=== PATIENT | female | born 1995 | race Caucasian/White ===

== ENCOUNTER 2021-11-03 09:13 | Outpatient (CLI) | payer BC, SELFPAY ==
[2021-11-03] VITALS (7 sets, daily range): BP systolic 130–141; BP diastolic 71–88; PULSE 69–81; TEMP 36.1; BMI 33.0
--- NOTE | ~2021-11-03 | US_ITS ---
EXAMINATION: US OB BPP wo non-stress DATE: 11/03/2021 11:29 CDT INDICATION: decelerations. Hypertension. TECHNIQUE: Real-time transabdominal obstetric ultrasound. FINDINGS: No prior studies for comparison. There is a single living fetus in vertex presentation. The placenta is anterior without placenta pre via. cardiac activity and movement is noted with a heart rate of 120 beats per minute. Biophysical profile: breathin of 2 movement: 2 of 2 tone: 2 of 2 Amniotic flud pocket: 2 of 2 Total score: 8 of 8 IMPRESSION: 1. Single living intrauterine in vertex presentation. 2: Total biophysical profile score of 8/8. Reviewed, dictated and finalized at location B.
[2021-11-03 09:56] LABS: Basophils Percent Auto 0.4 % (0.2-1.2); Eosinophils Percent Auto 0.3 % (0-4.4); Hematocrit 33.7 % (37.0-47.0); Hemoglobin 11.8 g/dL (12.0-15.0); Immature Granulocyte Absolute 0.05 K/mm3 (0.00-0.031); Immature Granulocyte Percent A 0.5 % (0-0.5); Lymphocytes Absolute Auto 1.65 K/mm3 (0.9-3.2); Mean Corpuscular Hemoglobin 29.8 pg (26-34); Mean Corpuscular Volume 85.1 fl (80-100); Monocytes Absolute Auto 0.8 K/mm3 (0.1-0.6); Monocytes Percent Auto 7.2 % (2.6-8.5); Neutrophils Absolute Auto 8.5 K/mm3 (1.3-6.7); Neutrophils Percent Auto 76.6 % (45.5-73.1); Platelet Count Result 224 k/mm3 (150-375); Red Blood Count 3.96 M/mm3 (4.2-5.4); Red Cell Distribution Width 11.7 % (11.5-14.5)
[2021-11-03 10:07] LABS: Alanine Aminotransferase 18 U/L (6-35); Albumin Level 3.6 g/dL (3.5-5.1); Alkaline Phosphatase 131 U/L (38-126); Anion Gap 6 mmol/L (8-16); Aspartate Amino Transferase 23 U/L (14-36); Bilirubin,Total 0.3 mg/dL (0.2-1.3); Blood Urea Nitrogen 10 mg/dL (7-17); Calcium 9.3 mg/dL (8.4-10.2); Carbon Dioxide 22 mmol/L (22-30); Chloride 106 mmol/L (98-107); Estimated CRCL calculation 113 ml/min; Estimated Glomerular Filt Rate > 60; Glucose 75 mg/dL (65-110); Potassium 3.9 mmol/L (3.4-5.0); Sodium 134 mmol/L (137-145); Uric Acid 5.4 mg/dL (2.5-7.5)
[2021-11-03 10:31] LABS: Appearance Urine Slightly Cloudy (Clear); Bilirubin Urine Negative (Negative); Color Urine Yellow (Yellow); Glucose Urine UA Negative (Negative); Ketones Urine Negative (Negative); Leukocyte Esterase Ur Trace LEU/UL (Negative); Nitrate Urine Negative (Negative); Protein Urine Negative (Negative); Urobilinogen Urine 0.2 mg/dL (<2.0); pH Urine 7.5 (5.0-9.0)
[2021-11-03 10:32] LABS: Add Urine Microscopic? YES; Blood Urine Trace-Intact (Negative)
[2021-11-03 10:41] LABS: Creatinine Urine 84.1 mg/dL; Total Protein Urine Random 16 mg/dL; Ur Ttl Prot Creatinine Ratio 0.19 mg/mg (0-0.20)
--- NOTE | 2021-11-03 10:44 | PC.NURSE ---
Dr. Garcia returned page and informed of BP's, lab results, and discussed otherwise reactive NST with 15-20 sec variables down to 120 and baby had a 2 min prolonged decel after coming back from the bathroom. FHT's went down to the 100's and took 2 mins for FHT's to return to 135 baseline. Have had reactive accels since the prolonged decel. Pt is 38 wks. MD states normal fluid on U/S done at MD office today. Order received for BPP. If 01/03, may discharge to home.
[2021-11-03 10:45] LABS: Bacteria Urine Trace /hpf; RBC Urine 0-2 /hpf (0-2); Squamous Epithelial Cell Urine Many /hpf (Few); WBC Urine 0-3 /hpf
--- NOTE | 2021-11-03 11:18 | PC.NURSE ---
BPP 01/03.
--- NOTE | 2021-11-03 13:05 | PM.OBTRLD ---
OB - Triage/Final Diagnosis Visit Information Date of evaluation: 11/03/21 Reason for evaluation: other ( induced hypertension) Comments/Additional reasons for admission: I have assessed the risk for this patient, Elizabeth Rubin, and determined that she would benefit from observation care. Evaluation Laboratory results: Laboratory Tests 11/03/21 11/03/21 11/03/21 09:48 09:48 09:48 WBC 11.0 H RBC 3.96 L Hgb 11.8 L Hct 33.7 L MCV 85.1 MCH 29.8 MCHC 35.0 RDW 11.7 Plt Count 224 MPV 11.0 H Immature Gran % (Auto) 0.5 Neut % (Auto) 76.6 H Lymph % (Auto) 15.0 L Hawkins % (Auto) 7.2 Eos % (Auto) 0.3 Baso % (Auto) 0.4 Lymph # (Auto) 1.65 Hawkins # (Auto) 0.8 H Eos # (Auto) 0.0 Baso # (Auto) 0.0 Abs Immat Gran (auto) 0.05 H Absolute Neuts (auto) 8.5 H Absolute Nucleated RBC 0.0 Nucleated RBC % 0.0 Sodium 134 L Potassium 3.9 Chloride 106 Carbon Dioxide 22 Anion Gap 6 L BUN 10 Creatinine 0.80 Estim Creat Clear Calc 113 Estimated GFR > 60 Glucose 75 Uric Acid 5.4 Calcium 9.3 Total Bilirubin 0.3 AST 23 ALT 18 Alkaline Phosphatase 131 H Total Protein 7.0 Albumin 3.6 Urine Color Urine Appearance Urine pH Ur Specific Wittman Urine Protein Urine Glucose (UA) Urine Ketones Ur Blood (Man) Urine Nitrate Urine Bilirubin Urine Urobilinogen Leukocyte Esterase Rfl Urine RBC Urine WBC Ur Squamous Epith Cells Urine Bacteria U Random Total Protein 16 Urine Creatinine 84.1 Protein/Creat Ratio 2 0.19 11/03/21 09:48 WBC RBC Hgb Hct MCV MCH MCHC RDW Plt Count MPV Immature Gran % (Auto) Neut % (Auto) Lymph % (Auto) Hawkins % (Auto) Eos % (Auto) Baso % (Auto) Lymph # (Auto) Hawkins # (Auto) Eos # (Auto) Baso # (Auto) Abs Immat Gran (auto) Absolute Neuts (auto) Absolute Nucleated RBC Nucleated RBC % Sodium Potassium Chloride Carbon Dioxide Anion Gap BUN Creatinine Estim Creat Clear Calc Estimated GFR Glucose Uric Acid Calcium Total Bilirubin AST ALT Alkaline Phosphatase Total Protein Albumin Urine Color Yellow Urine Appearance Slightly cloudy Urine pH 7.5 Ur Specific Wittman 1.020 Urine Protein Negative Urine Glucose (UA) Negative Urine Ketones Negative Ur Blood (Man) Trace-intact Urine Nitrate Negative Urine Bilirubin Negative Urine Urobilinogen 0.2 Leukocyte Esterase Rfl Trace H Urine RBC 0-2 Urine WBC 0-3 Ur Squamous Epith Cells Many H Urine Bacteria Trace U Random Total Protein Urine Creatinine Protein/Creat Ratio 2 Vital signs: Vital Signs - 24 hr 11/03/21 09:31 11/03/21 09:55 11/03/21 10:15 Temperature Pulse Rate 81 79 71 Blood Pressure 141/88 H 134/75 132/79 Blood Pressure [Right Arm] 11/03/21 10:30 11/03/21 10:45 11/03/21 09:33 Temperature Pulse Rate 76 69 79 Blood Pressure 138/77 130/71 Blood Pressure [Right Arm] 141/88 H 11/03/21 09:33 Temperature 36.1 C L Pulse Rate Blood Pressure Blood Pressure [Right Arm]
== END 2021-11-03 11:19 | disposition home or self-care (01) ==
LOC: ANHOBOP 09:18 → ANHOBPP 11-08 08:17
PROVIDERS: Visit Provider Student in an Organized Health Care Education/Training Program
DX: O13.3 Gestational [pregnancy-induced] hypertension without significant proteinuria, third trimester (principal); Z3A.38 38 weeks gestation of pregnancy
CPT/HCPCS: 36415; 59025; 76819; 80053; 81001; 82570; 84156; 84550; 85025; 99199

== ENCOUNTER 2021-11-08 20:00 | Observation (INO) | payer BC, SELFPAY ==
--- NOTE | 2021-11-10 07:36 | PM.OBTRLD ---
OB - Triage/Final Diagnosis Visit Information Reason for evaluation: threatened labor Comments/Additional reasons for admission: I have assessed the risk for this patient, Elizabeth Rubin, and determined that she would benefit from observation care.
== END 2021-11-08 21:00 | disposition home or self-care (01) ==
PROVIDERS: Admitting Provider Obstetrics & Gynecology; Visit Provider Obstetrics & Gynecology
DX: O47.1 False labor at or after 37 completed weeks of gestation (principal); Z3A.38 38 weeks gestation of pregnancy
CPT/HCPCS: 84112; G0378; G0379

== ENCOUNTER 2021-11-10 16:36 | Inpatient (IN) | payer BC, SELFPAY ==
[2021-11-10] VITALS (24 sets, daily range): BP systolic 111–137; BP diastolic 49–84; PULSE 57–87; O2SAT 97–100; BMI 33.5
--- NOTE | 2021-11-10 10:25 | PM.IMHP ---
H&P: HPI History of Present Illness Date/Time: 11/10/21 10:25 Chief Complaint: intrauterine at term gestational hypertension Narrative: 26 yo G1 at 39w0d who presents for IOL for gestational hypretension. Pt was noted to have mild range BP in outpatient visits. [facility] lab work has been wnl. Pt denies any PreE symptoms. Given persistent mild range BP, recommended IOL. Review of Systems Cardiovascular: Cardiovascular: Denies chest pain, Denies leg edema, Denies palpitations, Denies dyspnea and Denies dyspnea on exertion Respiratory: Respiratory: Denies cough, Denies dyspnea and Denies dyspnea on exertion Gastrointestinal: Gastrointestinal: Denies abdominal pain, Denies constipation, Denies diarrhea, Denies nausea and Denies vomiting Genitourinary: Genitourinary: Denies hematuria, Denies urinary frequency, Denies dysuria, Denies pelvic pain, Denies urinary incontinence and Denies vaginal discharge Neurologic: Reports system reviewed and no additional complaints, except as documented Psychiatric: Psychiatric: Reports no additional psychiatric complaints Endocrine: Endocrine: Denies palpitations [facility] Family History Family History (Updated 10/19/21 @ 15:26 by Nora Bello RN) Grandparent Cerebrovascular accident Grandparent Alzheimer disease Social History Social History Substance use: never Spiritual care concerns: No Meds Home Medications and Allergies Home Medications Medication Instructions Recorded Confirmed Type prenat.vits,hammad,[id number] 1 tablet PO DAILY 10/19/21 11/03/21 History Allergies Allergy/AdvReac Type Severity Reaction Status Date / Time cinnamon Allergy Swelling Verified 11/03/21 10:00 of Lip/Tongue/Throat No Known Drug Allergies Allergy Unknown Verified 11/03/21 10:00 Exam Const: General: no acute distress Eyes: EOM: EOMs intact bilaterally Neck: Neck: supple Thyroid: thyroid normal Chest: Breast/axilla inspection: normal inspection of the breasts Breast/axilla palpation: normal palpation of the breasts, normal palpation of the axillae and no axillary lymphadenopathy Resp: Effort & Inspection: normal respiratory effort Auscultation: clear to auscultation bilaterally Cardio: Rate: regular rate Rhythm: regular rhythm GI: Inspection: non-distended and other (Gravid) GI Palp: Yes Soft to palpation, No Tenderness to palpation present (GI) and No Guarding due to palpation present (GI) Auscultation: normal bowel sounds : Speculum Exam - Vagina: No vaginal bleeding OB/external & speculum: external exam normal; No vaginal bleeding Skin: General skin exam: normal color and no rashes or lesions noted Neuro: Cognition (Neuro): normal cognition Speech: normal speech Extrem: General: normal to inspection Psych: Mental Status: mental status grossly normal Affect: normal affect Assessment and Plan Assessment and plan (1) Supervision of high risk , unspecified, third trimester: Code(s): O09.93 - Supervision of high risk , unspecified, third trimester Status: Acute Assessment and Plan: 26 yo at 39w0d admit to L&D for IOL labs wnl Rh+ GBS neg plan for cervidil IOL continuous EFM (2) Gestational hypertension: Code(s): O13.9 - Gestational [-induced] hypertension without significant proteinuria, unspecified trimester Status: Acute Assessment and Plan: mild range BP in office PIH labs wnl denies any PreE symptoms recommended IOL given persistent mild range BP plan for cervidil IOL
--- NOTE | 2021-11-10 16:58 | P.PNAN_ITS ---
Anes - Eval Pre Procedure Procedure: Labor epidural Date/Time: 11/10/21 16:58 Surgeon: Radha Preop Diagnosis: Abd pain with contractions Pre Op Diagnosis: Induction of Labor Patient Data Age: 26 Gender: F Height: Weight: Allergies Allergy/AdvReac Type Severity Reaction Status Date / Time cinnamon Allergy Swelling Verified 11/03/21 10:00 of Lip/Tongue/Throat No Known Drug Allergies Allergy Unknown Verified 11/03/21 10:00 Home Medications Medication Instructions Recorded Confirmed Type prenat.vits,hammad,fsf-gdaw-lpiod 1 tablet PO DAILY 10/19/21 11/03/21 History Patient hx anesthesia problems: none Family hx anesthesia problems: none Results Review: All pre-operative results and documents have been reviewed as part of the pre- operative evaluation. [facility] Past Medical History Medical History Anxiety Gestational hypertension Obesity Tachycardia Family History Family History Grandparent Cerebrovascular accident Grandparent Alzheimer disease Social History Social History Substance use: never Spiritual care concerns: No Exam Day of Procedure 11/10/21 16:58 Patient weight: obese Airway: Mallampati scale class II
--- NOTE | 2021-11-10 17:06 | LDADM ---
This patient, Elizabeth Rubin, was admitted to Labor/Delivery/Recovery 109 on 11/10/21 at 16:36. Plans for labor, pain management and were discussed with patient. Patient/family oriented to hospital policies and general routines including ID bracelet, bed and alarms, visiting hours, pain management, procedures, bathroom and other care routines, personal items, smoking policy, room service/diet and guest tray routines, security routines, and visiting hours. Patient/Family are encouraged to report perceived risks to care and to ask questions if they do not understand what they are told or what they should do. See OBIX for further documentation.
[2021-11-10 17:17] LABS: Basophils Percent Auto 0.3 % (0.2-1.2); Eosinophils Absolute Auto 0.1 K/mm3 (0-0.3); Eosinophils Percent Auto 0.5 % (0-4.4); Hematocrit 32.4 % (37.0-47.0); Hemoglobin 10.9 g/dL (12.0-15.0); Immature Granulocyte Absolute 0.06 K/mm3 (0.00-0.031); Immature Granulocyte Percent A 0.6 % (0-0.5); Lymphocytes Absolute Auto 1.56 K/mm3 (0.9-3.2); Mean Corpuscular HGB Conc 33.6 g/dl (32-36); Mean Corpuscular Volume 86.2 fl (80-100); Mean Platelet Volume 11.2 fl (7.4-10.4); Monocytes Absolute Auto 0.7 K/mm3 (0.1-0.6); Monocytes Percent Auto 6.6 % (2.6-8.5); Platelet Count Result 212 k/mm3 (150-375); Red Blood Count 3.76 M/mm3 (4.2-5.4); Red Cell Distribution Width 11.8 % (11.5-14.5); White Blood Count 10.4 K/mm3 (4.5-10.0)
[2021-11-10 17:26] LABS: Alanine Aminotransferase 18 U/L (6-35); Albumin Level 3.6 g/dL (3.5-5.1); Alkaline Phosphatase 123 U/L (38-126); Anion Gap 4 mmol/L (8-16); Aspartate Amino Transferase 25 U/L (14-36); Bilirubin,Total < 0.1 mg/dL (0.2-1.3); Blood Urea Nitrogen 11 mg/dL (7-17); Carbon Dioxide 24 mmol/L (22-30); Chloride 104 mmol/L (98-107); Estimated CRCL calculation 114 ml/min; Estimated Glomerular Filt Rate > 60; Glucose 84 mg/dL (65-110); Potassium 3.8 mmol/L (3.4-5.0); Sodium 132 mmol/L (137-145); Uric Acid 5.5 mg/dL (2.5-7.5)
[2021-11-10] MEDS: DINOPROSTONE 10 MG VAG INSERT VAGINAL (18:34)
[2021-11-11] VITALS (215 sets, daily range): BP systolic 102–150; BP diastolic 47–99; PULSE 25–142; RESP 18; TEMP 36.3–38.1; O2SAT 79–100
[2021-11-11] MEDS: DINOPROSTONE 10 MG VAG INSERT VAGINAL (01:12)
[2021-11-11] MEDS: ACETAMINOPHEN 500 MG TABLET 1000 MG PO ×2 (01:40→08:22)
--- NOTE | 2021-11-11 07:40 | PM.OBTRLD ---
OB - Triage/Final Diagnosis Visit Information Comments/Additional reasons for admission: I have assessed the risk for this patient, Elizabeth Rubin, and determined that she would benefit from observation care. Evaluation Laboratory results: Laboratory Tests 11/10/21 11/10/21 11/10/21 16:56 16:56 16:57 WBC 10.4 H RBC 3.76 L Hgb 10.9 L Hct 32.4 L MCV 86.2 MCH 29.0 MCHC 33.6 RDW 11.8 Plt Count 212 MPV 11.2 H Immature Gran % (Auto) 0.6 H Neut % (Auto) 77.0 H Lymph % (Auto) 15.0 L Tripp % (Auto) 6.6 Eos % (Auto) 0.5 Baso % (Auto) 0.3 Lymph # (Auto) 1.56 Tripp # (Auto) 0.7 H Eos # (Auto) 0.1 Baso # (Auto) 0.0 Abs Immat Gran (auto) 0.06 H Absolute Neuts (auto) 8.0 H Absolute Nucleated RBC 0.0 Nucleated RBC % 0.0 Sodium 132 L Potassium 3.8 Chloride 104 Carbon Dioxide 24 Anion Gap 4 L BUN 11 Creatinine 0.80 Estim Creat Clear Calc 114 Estimated GFR > 60 Glucose 84 Uric Acid 5.5 Calcium 9.0 Total Bilirubin < 0.1 L AST 25 ALT 18 Alkaline Phosphatase 123 Total Protein 7.0 Albumin 3.6 Blood Type A Positive Antibody Screen Negative Vital signs: Vital Signs - 24 hr 11/10/21 17:00 11/10/21 17:15 11/10/21 17:30 Temperature Pulse Rate 87 68 64 Blood Pressure 137/84 136/78 133/78 Pulse Oximetry Oxygen Delivery 11/10/21 17:32 11/10/21 17:37 11/10/21 17:42 Temperature Pulse Rate Blood Pressure Pulse Oximetry 97 100 100 Oxygen Delivery 11/10/21 17:45 11/10/21 17:47 11/10/21 17:52 Temperature Pulse Rate 65 Blood Pressure 126/60 Pulse Oximetry 99 99 Oxygen Delivery 11/10/21 17:57 11/10/21 18:00 11/10/21 18:02 Temperature Pulse Rate 63 Blood Pressure 129/57 L Pulse Oximetry 99 99 Oxygen Delivery 11/10/21 18:07 11/10/21 18:12 11/10/21 18:15 Temperature Pulse Rate 59 L Blood Pressure 121/67 Pulse Oximetry 99 98 Oxygen Delivery 11/10/21 18:17 11/10/21 18:22 11/10/21 18:27 Temperature Pulse Rate Blood Pressure Pulse Oximetry 99 99 99 Oxygen Delivery 11/10/21 18:30 11/10/21 18:32 11/10/21 18:43 Temperature Pulse Rate 75 63 Blood Pressure 127/64 130/63 Pulse Oximetry 98 Oxygen Delivery 11/10/21 19:34 11/10/21 20:40 11/10/21 22:34 Temperature Pulse Rate 63 65 79 Blood Pressure 123/61 122/61 111/49 L Pulse Oximetry Oxygen Delivery 11/11/21 00:00 11/11/21 00:03 11/11/21 05:46 Temperature 98.1 F Pulse Rate 59 L 62 Blood Pressure 112/47 L 110/67 Pulse Oximetry Oxygen Delivery 11/11/21 05:58 11/11/21 06:52 11/10/21 17:05 Temperature 97.9 F Pulse Rate 59 L Blood Pressure 132/81 Pulse Oximetry Oxygen Delivery Room Air
--- NOTE | 2021-11-11 08:17 | PM.OBPNLAB ---
Pain Control Date/time seen: 11/11/21 08:17 Pain control: tolerating well Pelvic Exam Dilation (cm): 2 Effacement (%): 70 station: -1 Amniotic membrane status: Intact Contractions Monitor mode: External Status status: Category l Assessment and Plan Assessment: induction ongoing Plan: other (cervical pablo catheter was placed)
[2021-11-11] MEDS: LACTATED RINGERS 1,000 ML 125 ML IV CONT ×2 (08:51→15:57)
--- NOTE | 2021-11-11 10:16 | PM.OBPNLAB ---
Pain Control Date/time seen: 11/11/21 10:16 Pain control: epidural Pelvic Exam Dilation (cm): 5 Effacement (%): 80 station: -1 Amniotic membrane status: Ruptured (clear fluid) Contractions Monitor mode: Internal Contraction frequency: 3 Status status: Category l Assessment and Plan Assessment: induction ongoing Plan: continuous present management Comments: AROM for clear fluid. IUPC placed. Will augment with pitocin if contractions inadequate
[2021-11-11] MEDS: OXYTOCIN 30 UNITS/NS 500 ML 30 UNITS/500 ML BAG IV CONT (11:22)
[2021-11-11 13:53] LABS: Rapid Plasma Reagin Non-Reactive (NonReactive)
[2021-11-11] MEDS: ONDANSETRON INJ 4 MG/2 ML VIAL IV PUSH (16:21)
[2021-11-11] MEDS: AMPICILLIN 2 GM/NS 100 ML 2 GM/100 ML BAG IVPB (18:41)
[2021-11-11] MEDS: GENTAMICIN 80MG/SOD CHL 50 ML 80 MG/50 ML BAG 100 MG IVPB (19:12)
[2021-11-11] MEDS: FAMOTIDINE 20 MG/2 ML VIAL (20:28)
--- NOTE | 2021-11-11 20:58 | PM.OBPRVD ---
OB - Delivery Note Procedure Procedure: Patient pushed for a spontaneous vaginal delivery. The fetus was delivered atraumatically and placed on the maternal abdomen. The cord was clamped and cut after 1 minute of life. The cord was double clamped and cut and a segment of cord was collected for cord gases. Cord blood was collected for blood type and Coomb's testing. The placenta delivered spontaneously and was noted to be intact. The perineum was inspected and there was a 2nd degree perineal laceration. The laceration was repaired with 3-0 vicryl in the usual fashion. The uterus was firm and good hemostasis was noted. The patient and fetus were stable in the delivery room. Events: Gestational Hypertension Induction method: Per Cervidil Protocol Delivery augmentation: Rupture of Membranes and Pitocin Delivery monitor: External FHT Route of delivery: Episiotomy description: None Laceration Description: Perineal - 2nd Degree Delivery repair: vicryl Specimen: No Quantitative Blood Loss (ml): 400 Disposition: Floor () Complications: No immediate complications Baby Date of : 11/11/21 Weeks of gestation at delivery: 39 gender: Female Weight (pounds): 9 Weight (ounces): 14 presentation: vertex position: Right Occiput Anterior Placenta delivery description: Spontaneous Cord Vessel Description: 3 Vessels score one minute: 9 score five minutes: 9
[2021-11-11] MEDS: OXYTOCIN 30 UNITS/NS 500 ML 30 UNITS/500 ML BAG 125 UNITS IV CONT (21:22)
[2021-11-11] MEDS: IBUPROFEN 600 MG TABLET PO (22:22)
--- NOTE | 2021-11-11 23:25 | ADMGEN ---
This patient, Elizabeth Rubin, was admitted to OB 2nd Floor Room 288-00. Patient/family oriented to hospital policies and general routines including ID bracelet, bed and alarms, visiting hours, pain management, procedures, bathroom and other care routines, personal items, smoking policy, room service/diet, and visiting hours. Information on how to activate the Rapid Response Team has been discussed. Patient/Family are encouraged to report perceived risks to care and to ask questions if they do not understand what they are told or what they should do.
[2021-11-12] VITALS (7 sets, daily range): BP systolic 119–143; BP diastolic 66–92; PULSE 66–77; RESP 16–18; TEMP 36.5–36.7; O2SAT 98–100
[2021-11-12] MEDS: IBUPROFEN 600 MG TABLET PO ×2 (05:44→17:10)
[2021-11-12 06:12] LABS: Hematocrit 31.7 % (37.0-47.0); Hemoglobin 10.7 g/dL (12.0-15.0)
--- NOTE | 2021-11-12 07:59 | WPDANLDPN2 ---
Anes-Prog Note L&D Date/Time: 11/12/21 07:59 Comfortable throughout: labor and delivery Neuraxial method: epidural Epidural/Spinal procedure site: clean & non-tender Neuro status: Neuro function grossly intact. Cardiovascular status: normal Respiratory status: normal Airway patency: baseline Mental status: baseline Post-Op hydration status: normal Vital Signs: Last Vital Signs Temp 36.5 C 11/12/21 04:00 Pulse 72 11/12/21 04:00 Resp 18 11/12/21 04:00 BP 132/92 H 11/12/21 04:00 Pulse Ox 99 11/11/21 20:36 O2 Del Method Room Air 11/12/21 04:00 Pain score (VAS): 3 I/O: Intake & Output 11/11/21 11/11/21 11/12/21 15:59 23:59 07:59 Intake Total 3274 075 2288 Output Total 40 1300 Balance 1000 160 200 Post-procedural complaints: none Patient feedback: Patient satisfied with anesthetic care.
--- NOTE | 2021-11-12 08:01 | PM.OBPNVD ---
OB - PN: Subj Subjective Date/time seen: 11/12/21 08:01 Patient comments: no complaints, pain well controlled and tolerating diet [place] feeding status: exclusively breast feeding Narrative: patient doing well this AM. No complaints. Pt has some increased perineal pain. She reports minimal bleeding. She is ambulating and voiding without difficulty. She is tolerating PO. She denies N/V, fever, chills. OB - PN: Obj Data Labs CBC & Chem 7: 11/12/21 05:39 11/10/21 16:57 Labs: Laboratory Results - last 24 hr 11/10/21 11/12/21 16:56 05:39 Hgb 10.7 L Hct 31.7 L RPR Non-reactive OB - PN A/P Plan day: 1 Plan: routine care Comments: patient doing well H/H stable continue routine care Time Spent With Patient Time: Total time spent is greater than 50% in coordination of care (as documented) at patient's floor/unit and/or counseling patient: Time with patient: less than 15 minutes Review of Systems Review of Systems: All systems reviewed & are unremarkable except as noted in HPI and below Exam Const: General: comfortable and no acute distress Resp: Effort & Inspection: normal respiratory effort Cardio: Rate: regular rate GI: GI Palp: Yes Soft to palpation and No Tenderness to palpation present (GI) Auscultation: normal bowel sounds Other: fundus firm and below umbilicus. Psych: Affect: normal affect
[2021-11-12] MEDS: ACETAMINOPHEN 325 MG TABLET 650 MG PO (09:11)
[2021-11-12] MEDS: DOCUSATE SODIUM 100 MG CAPSULE PO ×2 (09:12→17:11)
[2021-11-12] MEDS: MULTIVIT/MIN/PREN/FOL AC/IRON TABLET 1 TAB PO (09:12)
[2021-11-12] MEDS: HYDROcodone/acetaminophen (*CRX) 5-325 MG TABLET 1 TAB PO ×2 (10:04→17:11)
--- NOTE | 2021-11-12 13:43 | PC.NURSE ---
This morning introductions were made, then consulted with patient to assess needs related to . Mother led the conversation with her experience feeding her so far. Mother works well with her infant. Encouraged understanding of the benefits of skin to skin (unwrapping infant and placing vertically on her chest), responsive feeding and how to watch for early feeding signs, frequency of feeding on demand about every 8-12 times in 24 hours (every 2-3 hours), milk production, duration of feeding, signs of adequate intake/output and how to record on the feeding sheet. Reviewed positioning and ear, shoulder, hip alignment, supporting the breast, asymmetrical latch (off-center), and leading with the chin with a big open side gape. Primary RN had assisted infant to latch optimally to the left breast in cross cradle position. Education given to mother of how to visualize suck/swallow ratios and drinking at the breast. Infant was able to maintain latch without discomfort to mother. After an effective breastfeed of 20 min self-detached and there was no nipple misshaped to indicate an improper latch. Infants hands were relaxed. Nipple care reviewed with optimal latch and good positioning. Reviewed good handwashing when or touching the breast/nipples to prevent infection. Resources used to facilitate learning were used with the mom and baby guide. Mother voiced understanding of responsive feedings, stimulating with skin to skin, hand expressed colostrum, touch, talking to to encourage if it has been 2 -3 hours since the start of the last , to call if infant does not latch or there is discomfort with . Reported to the primary RN.
[2021-11-12] MEDS: WITCH HAZEL 40 PADS 1 PAD TOPICAL (17:12)
[2021-11-13 05:05] VITALS: BP 128/79; PULSE 86; RESP 16; TEMP 36.1
[2021-11-13] MEDS: HYDROcodone/acetaminophen (*CRX) 5-325 MG TABLET 1 TAB PO (05:13)
[2021-11-13] MEDS: IBUPROFEN 600 MG TABLET PO (05:13)
--- NOTE | 2021-11-13 06:33 | PM.OBPNVD ---
OB - PN: Subj Subjective Date/time seen: 11/13/21 06:33 Patient comments: no complaints and pain well controlled baby status: doing well OB - PN: Obj Data Labs CBC & Chem 7: 11/12/21 05:39 11/10/21 16:57 Labs: Laboratory Results - last 24 hr 11/12/21 05:39 Hgb 10.7 L Hct 31.7 L OB - PN A/P Assessment and Plan (1) Gestational hypertension: Code(s): O13.9 - Gestational [-induced] hypertension without significant proteinuria, unspecified trimester Status: Acute (2) Supervision of high risk , unspecified, third trimester: Code(s): O09.93 - Supervision of high risk , unspecified, third trimester Status: Acute Plan day: 1 Plan: routine care, discharge home and follow up 6 weeks Time Spent With Patient Time: Total time spent is greater than 50% in coordination of care (as documented) at patient's floor/unit and/or counseling patient: Time with patient: less than 15 minutes
--- NOTE | 2021-11-13 08:01 | PM.OBDSVD ---
DS: Admitting Diagnosis Discharge Date 11/13/21 Admitting Diagnosis intrauterine at term gestational hypertension OB - DS: Summary OB Procedures : None OB Procedures Intrapartum: Spontaneous Vag Delivery OB Procedures: : None Peripartum Data Infant Delivery Method: Natural Vaginal Laceration Description: Perineal - 2nd Degree Episiotomy description: None Status at Discharge Functional status at discharge: independent ambulation Overall status at discharge: patient is back to baseline Time Spent with Patient Time attestation: Total time spent providing and/or coordinating discharge services: Time spent: Less than 30 minutes Exam Const: General: comfortable and no acute distress Resp: Effort & Inspection: normal respiratory effort Auscultation: clear to auscultation bilaterally Cardio: Rate: regular rate GI: GI Palp: Yes Soft to palpation Auscultation: normal bowel sounds Other: Fundus firm below umbilicus Psych: Appearance: grossly normal Mental Status: mental status grossly normal Affect: normal affect DS: Data Data Completed and Pending Labs on day of discharge: Labs from last 24 hours 11/12/21 11/10/21 05:39 16:56 Hgb 10.7 L Hct 31.7 L RPR Non-reactive Discharge Plan Discharge Attending physician on discharge: David Medel Consulting providers: Nate Jarquin ; Fe Pitt Discharging Clinician: Renny Garcia Patient Disposition: Home, Self-Care Activity: pelvic rest Diet: regular Discharge Instructions: Education: Mom and Baby Guide Given to: Mother Follow-Up: Call your delivering provider's office for an appointment to be seen in: 4 Weeks Mom and baby should come to the [facility] for the follow-up appointment. Appointment Date/Time: November 13, 2021 at 10:00 am What to expect at your follow-up visit: Physical Assessment Call [phone] if you are unable to keep your appointment time. BREAST CARE: * Wear a snug supportive bra. * For engorgement discomfort: Breast Feeding: * Apply warm moist washcloths * Express milk as needed to relieve engorgement * Wear loose clothing * For sore nipples: * Identify correct latch-on * Apply warm moist washcloths before and after nursing * Air dry nipples after nursing * May apply Lansinoh cream to nipples PERINEAL CARE: * Until bleeding stops, use your eliel bottle after urinating * Change your pad frequently throughout the day * You may take sitz baths several times a day (fill your bathtub with warm water and soak for 20 minutes.) Do NOT bathe in the water * No tub baths until seen by your physician - You may shower ACTIVITY: * Rest as much as possible. * Do not exercise or lift anything heavier than your baby (such as laundry or other children.) * Avoid stairs or driving as much as possible. * Do not put anything into the vagina. No douching, tampons, or sexual activity until seen by physician. NOTIFY PHYSICIAN IF YOU HAVE ANY QUESTIONS OR IF ANY OF THE FOLLOWING SYMPTOMS OCCUR: * If your perineum becomes red, swollen, or more painful than what you have experienced in the hospital. * If your vaginal bleeding becomes foul smelling. * If your vaginal bleeding becomes more heavy than a period or if your bleeding changes from pink to bright red. However, you may pass an occasional walnut-sized clot once or twice for the first week . * If you experience a sharp, shooting pain in you calves. * If you discover a hard, reddened area on your breast or if you experience flu-like symptoms. DIET: * Eat regular, well-balanced meals. * Drink plenty of fluids daily. If , drink to thirst. Patient Instructions: Antibiotic Form, Vaginal Delivery (DC) Stand Alone Forms: General Discharge Information Follow-up/Referrals: Renny Garcia MD [Physician] - 4 Weeks Discharge Medication
[2021-11-13 09:20] VITALS: BP 142/76; PULSE 80; RESP 18; TEMP 36.1; O2SAT 99
[2021-11-13] MEDS: MULTIVIT/MIN/PREN/FOL AC/IRON TABLET 1 TAB PO (10:43)
[2021-11-13] MEDS: DOCUSATE SODIUM 100 MG CAPSULE PO (10:43)
[2021-11-13] MEDS: LANOLIN (LANSINOH) 7.5 GM CREAM 1 APPLIC TOPICAL (10:43)
[2021-11-15 10:14] VITALS: BP 143/85; PULSE 75; RESP 16; TEMP 37.1; O2SAT 100
== END 2021-11-13 14:54 | disposition home or self-care (01) | DRG 807 ==
LOC: ANHOB2 11-13 13:51 → ANHLDR 11-16 07:55 → ANHOB2 11-16 07:55
PROVIDERS: Admitting Provider Student in an Organized Health Care Education/Training Program; Visit Provider Obstetrics & Gynecology
DX: O13.4 Gestational [pregnancy-induced] hypertension without significant proteinuria, complicating childbirth (principal); Z37.0 Single live birth; Z3A.39 39 weeks gestation of pregnancy; O70.1 Second degree perineal laceration during delivery; O36.8330 Maternal care for abnormalities of the fetal heart rate or rhythm, third trimester, not applicable or unspecified
CPT/HCPCS: 36415; 80053; 84550; 85014; 85018; 85025; 86592; 86850; 86900; 86901; A9270; J0131; J0290; J1580; J2405; J2590; J2795; J7120

== ENCOUNTER 2024-05-31 12:47 | Outpatient (CLI) | payer BC, OTHER, SELFPAY ==
[2024-05-31] VITALS (7 sets, daily range): BP systolic 117–136; BP diastolic 64–79; PULSE 77–101; BMI 32.0
[2024-05-31 13:57] LABS: Basophils Absolute Auto 0.1 K/mm3 (0.0-0.1); Basophils Percent Auto 0.4 % (0.2-1.2); Eosinophils Absolute Auto 0.1 K/mm3 (0-0.3); Eosinophils Percent Auto 0.7 % (0-4.4); Hematocrit 35.9 % (37.0-47.0); Hemoglobin 12.7 g/dL (12.0-15.0); Immature Granulocyte Absolute 0.05 K/mm3 (0.00-0.031); Immature Granulocyte Percent A 0.4 % (0-0.5); Lymphocytes Absolute Auto 1.63 K/mm3 (0.9-3.2); Lymphocytes Percent Auto 11.9 % (18.3-44.2); Mean Corpuscular HGB Conc 35.4 g/dl (32-36); Mean Corpuscular Hemoglobin 31.1 pg (26-34); Mean Corpuscular Volume 87.8 fl (80-100); Mean Platelet Volume 10.4 fl (7.4-10.4); Monocytes Absolute Auto 0.7 K/mm3 (0.1-0.6); Monocytes Percent Auto 5.2 % (2.6-8.5); Neutrophils Absolute Auto 11.2 K/mm3 (1.3-6.7); Neutrophils Percent Auto 81.4 % (45.5-73.1); Platelet Count Result 242 k/mm3 (150-375); Red Blood Count 4.09 M/mm3 (4.2-5.4); Red Cell Distribution Width 12.4 % (11.5-14.5); White Blood Count 13.7 K/mm3 (4.5-10.0)
[2024-05-31 14:01] LABS: Add Urine Microscopic? NO; Appearance Urine Clear (Clear); Bilirubin Urine Negative (Negative); Blood Urine Negative (Negative); Color Urine Yellow (Yellow); Glucose Urine UA Negative (Negative); Ketones Urine Trace mg/dL (Negative); Leukocyte Esterase Ur Negative LEU/UL (Negative); Nitrate Urine Negative (Negative); Protein Urine Negative (Negative); Specific Grav Ur 1.007 (1.001-1.035); Urobilinogen Urine 0.2 mg/dL (<2.0)
[2024-05-31 14:08] LABS: Alanine Aminotransferase 14 U/L (6-35); Albumin Level 3.7 g/dL (3.5-5.1); Alkaline Phosphatase 70 U/L (38-126); Anion Gap 3 mmol/L (4-12); Aspartate Amino Transferase 18 U/L (14-36); Bilirubin,Total 0.4 mg/dL (0.2-1.3); Blood Urea Nitrogen 10 mg/dL (7-17); Carbon Dioxide 23 mmol/L (22-30); Chloride 109 mmol/L (98-107); Estimated Glomerular Filt Rate > 60; Glucose 76 mg/dL (65-110); Potassium 3.7 mmol/L (3.4-5.0); Sodium 135 mmol/L (137-145); Uric Acid 4.1 mg/dL (2.5-7.5)
[2024-05-31 14:32] LABS: Creatinine Urine 49.1 mg/dL; Total Protein Urine Random 11 mg/dL; Ur Ttl Prot Creatinine Ratio 0.22 mg/mg (0-0.20)
--- NOTE | 2024-05-31 14:44 | PC.NURSE ---
Dr. Garcia informed of BP's, lab results, NST with 10 beat accels at 25 wks. Pt c/o headache. Orders received for discharge.
== END 2024-05-31 14:56 | disposition home or self-care (01) ==
LOC: ANHOBOP 12:54 → ANHOBPP 12:57
PROVIDERS: PCP Physician Assistant; Visit Provider Student in an Organized Health Care Education/Training Program
DX: O13.9 Gestational [pregnancy-induced] hypertension without significant proteinuria, unspecified trimester (principal)
CPT/HCPCS: 36415; 59025; 80053; 81003; 82570; 84156; 84550; 85025; 99199

== ENCOUNTER 2024-07-29 15:35 | Outpatient (CLI) | payer BC, OTHER, SELFPAY ==
[2024-07-29 16:15] VITALS: BP 139/79; PULSE 96
[2024-07-29 16:18] LABS: Basophils Percent Auto 0.3 % (0.2-1.2); Eosinophils Absolute Auto 0.1 K/mm3 (0-0.3); Eosinophils Percent Auto 0.7 % (0-4.4); Hemoglobin 10.9 g/dL (12.0-15.0); Immature Granulocyte Absolute 0.07 K/mm3 (0.00-0.031); Immature Granulocyte Percent A 0.6 % (0-0.5); Lymphocytes Absolute Auto 1.65 K/mm3 (0.9-3.2); Lymphocytes Percent Auto 13.2 % (18.3-44.2); Mean Corpuscular HGB Conc 34.1 g/dl (32-36); Mean Corpuscular Hemoglobin 29.2 pg (26-34); Mean Corpuscular Volume 85.8 fl (80-100); Mean Platelet Volume 10.7 fl (7.4-10.4); Monocytes Absolute Auto 0.8 K/mm3 (0.1-0.6); Monocytes Percent Auto 6.2 % (2.6-8.5); Neutrophils Absolute Auto 9.9 K/mm3 (1.3-6.7); Platelet Count Result 230 k/mm3 (150-375); Red Blood Count 3.73 M/mm3 (4.2-5.4); Red Cell Distribution Width 11.8 % (11.5-14.5); White Blood Count 12.5 K/mm3 (4.5-10.0)
[2024-07-29 16:27] LABS: Add Urine Microscopic? YES; Appearance Urine Turbid (Clear); Bacteria Urine 2+ /hpf; Bilirubin Urine Negative (Negative); Blood Urine Negative (Negative); Color Urine Yellow (Yellow); Glucose Urine UA Negative (Negative); Ketones Urine Negative (Negative); Leukocyte Esterase Ur 1+ LEU/UL (Negative); Mucus Urine Present /lpf; Need Manual Microscopic Reviewed; Nitrate Urine Negative (Negative); Protein Urine Trace mg/dL (Negative); RBC Urine 0-2 /hpf (0-2); Specific Grav Ur 1.014 (1.001-1.035); Squamous Epithelial Cell Urine Many /hpf (Few); Urobilinogen Urine 0.2 mg/dL (<2.0); WBC Urine 51-100 /hpf (0-3)
[2024-07-29 16:30] VITALS: BP 126/77; PULSE 99
[2024-07-29 16:32] LABS: Alanine Aminotransferase 16 U/L (6-35); Albumin Level 3.5 g/dL (3.5-5.1); Alkaline Phosphatase 90 U/L (38-126); Anion Gap 10 mmol/L (4-12); Aspartate Amino Transferase 19 U/L (14-36); Bilirubin,Total 0.4 mg/dL (0.2-1.3); Blood Urea Nitrogen 11 mg/dL (7-17); Calcium 9.9 mg/dL (8.4-10.2); Carbon Dioxide 21 mmol/L (22-30); Chloride 104 mmol/L (98-107); Estimated Glomerular Filt Rate > 60; Glucose 88 mg/dL (65-110); Potassium 3.8 mmol/L (3.4-5.0); Sodium 135 mmol/L (137-145); Uric Acid 3.8 mg/dL (2.5-7.5)
[2024-07-29 16:47] LABS: Creatinine Urine 84.1 mg/dL; Total Protein Urine Random 24 mg/dL; Ur Ttl Prot Creatinine Ratio 0.29 mg/mg (0-0.20)
[2024-07-29 17:10] VITALS: BP 139/79; PULSE 99
== END 2024-07-29 17:10 | disposition home or self-care (01) ==
LOC: ANHOBOP 15:41 → ANHOBPP 15:42
PROVIDERS: PCP Physician Assistant; Visit Provider Student in an Organized Health Care Education/Training Program
DX: O13.9 Gestational [pregnancy-induced] hypertension without significant proteinuria, unspecified trimester (principal); Z3A.00 Weeks of gestation of pregnancy not specified
CPT/HCPCS: 36415; 59025; 80053; 81001; 82570; 84156; 84550; 85025

== ENCOUNTER 2024-08-08 14:28 | Outpatient (CLI) | payer BC, OTHER, SELFPAY ==
--- NOTE | ~2024-08-08 | US_ITS ---
EXAMINATION: US OB follow up DATE: 08/08/2024 16:14 INDICATION: Gestational (-induced) hypertension. Third trimester. TECHNIQUE: Real-time ultrasound of the pelvis was performed. COMPARISON: Ultrasound 06/05/2024, 04/24/2024 FINDINGS: There is a single living fetus in breech presentation. The placenta is anterior. heart rate is 138 beats per minute (bpm). The amniotic fluid volume is subjectively normal. The cervical length is 4.6 cm on transabdominal images, which is normal. The following biometric data were obtained: Biparietal diameter (BPD): 9.3 cm; head circumference (HC): 34.4 cm; abdominal circumference (AC): 33 .8 cm; femur length (FL): 6.9 cm. These measurements are concordant. Estimated weight is 3206 g +/- 481 g, which correlates with the 94th percentile when 09/09/24 is used as estimated date of delivery. As single measurements, these parameters are each equal to the following estimated gestational ages: BPD: 37 weeks 6 days. HC: 39 weeks 6 days. AC: 37 weeks 5 days. FL: 35 weeks 4 days. estimated gestational age based solely on measurements from this exam is 37 weeks 5 days +/- 2 weeks 4 days. IMPRESSION: 1. Single living fetus in breech presentation. 2. Large for gestational age. Estimated weight is 3206 g +/- 481 g, which correlates with the 94th percentile when 09/09/24 is used as estimated date of delivery. Reviewed, dictated and finalized at location L. IMPRESSION: 1. Single living fetus in breech presentation. 2. Large for gestational age. Estimated weight is 3206 g +/- 481 g, whic h correlates with the 94th percentile when 09/09/24 is used as estimated date of delivery.
--- OUTSIDE RECORDS SUMMARY | 2024-08-08 16:18 | XMS_ITS | Encounter Summary ---
Author Organization [facility] Address [address] [place] [address] Phone Care Team Providers Care Outside Salesman Name Role Phone Pass, Shanel Desir MARKETING STRATEGY MANAGER, SOLE LAYER Unavailable [phone] Ofelia Pantoja MARKETING STRATEGY MANAGER, SOLE LAYER Primary Care Provider + Karolina Caro [facility] Primary Care Pro vider Reason for Visit * Reason Comments Medication Refill Encounter Details Date Type Department Care Team (Late st Contact Info) Description 05/08/2023 Refill [facility] [address] [place] [address] Ofelia Pantoja, MARKETING STRATEGY MANAGER, SOLE LAYER [address] [place] [address] Medication Refill Social History Tobacco Use Types Packs/Day Years Used Date Smoking Tobacco: Never Smokeless Tobacco: Never Alcohol Use Standard Drinks/Week Comments Yes 0 (1 standard drink = 0.6 oz pur e alcohol) occasionally PHQ-2 Answer Date Recorded Total Score - Questions 1-9 0 03/30 Sexually Active Control Partners Comments Yes Male Comments No Sex and Gender Information Value Date Recorded Sex Assigned at Not on file Legal Sex Female 10:00 PM CDT Gender Identity Not on file Sexual Orientation Not on file documented as of this encounter Miscellaneous Notes * Telephone Encounter - Karina Arango RN - 05/08/2023 4:23 PM CST Medication failed the protocol, provider to review and approve the medication order if appropriate. Requested Prescriptions Pending Prescriptions Disp Refills escitalopram (LEXAPRO) 10 MG Tablet [Pharmacy Med Name: ESCITALOPRAM 10MG TABLETS] 90 Tablet 1 Sig: Take 1 Tablet by mouth daily. SSRI (6 Month Refill Only) Protocol Failed - 05/08/2023 11:54 AM Failed - Visit with relevant provider in past 6 months or upcoming 90 days Recent Visits No visits were found meeting these conditions. Showing recent visits within past 182 days and meeting all other requirements Future Appointments No visits were found meeting these conditions. Showing future appointments within next 90 days and meeting all other requirements Failed - Has an encounter in the past 6 months with a depression, anxiety, adjustment disorder, OCD, or PTSD visit diagnosis Passed - No test in the past 12 months or most recent test was negative Passed - No active on record Passed - Patient has established therapy with SSRI for at least 6 months TATION WORKER CLEANING EQUIPMENT documented in this encounter Plan of Treatment Not on file documented as of this encounter Visit Diagnoses Diagnosis Depression, unspecified depression type Anxiety Anxiety state, unspecified documented in this encounter Additional Health Concerns Infection Onset Date Last Indicated Resolved Time COVID - 19 04/03/2024 04/03/2024 04/03/2024 9:02 AM SANITATION WORKER CLEANING EQUIPMENT Respiratory Rule-Out 04/03/2024 04/03/2024 024 9:04 AM SANITATION WORKER CLEANING EQUIPMENT Respiratory Rule-Out 07/14/2024 07/14/2024 025 12:29 PM SANITATION WORKER CLEANING EQUIPMENT COVID - 19 07/14/2024 07/14/2024 07/14/2024 12:2 7 PM SANITATION WORKER CLEANING EQUIPMENT Assessment Noted Time PHQ-9 Depression Total Score: 0 04/20/20 22 8:00 AM SANITATION WORKER CLEANING EQUIPMENT documented as of this encounter Care Teams Outside Salesman Relationship Specialty Start Date End Date Ofelia Pantoja, MARKETING STRATEGY MANAGER, SOLE LAYER [address] [place] [address] PCP - General Advanced Practice Nurse 07/13/22 Karolina Caro, PAC [address] [place] [address] PCP - General Physician Clerk Of Works 08/14/23 Shanel Sim APRN, SOLE LAYER 2 [facility] [address] [place] [address] Certified Nurse Practitioner 12/26/18 documented as of this encounter
--- OUTSIDE RECORDS SUMMARY | 2024-08-08 16:18 | XMS_ITS | Clinical Summary ---
Author Organization [facility] Address [address] [place] [address] Phone Care Team Providers Care Oyster Sorter Name Role Phone Pass, Shanel Desir APRN, BILL SORTER Unavailable [phone] Karolina Caro PAC Primary Care Pro vider Allergies Active Allergy Reactions Criticality Noted Date Comments Amoxicillin Rash 05/17/2024 Medications acetaminophen (TYLENOL) 500 MG Tablet Take 500 mg by mouth every 4 hours as needed. Active fluticasone (Flonase) 50 MCG/ACT SuspensionIndic ations:Sinus congestion 1-2 Sprays by Nasal route daily. Use in each nostril as directed. 11.1 mL 3 2 Active Additional Information Patient not taking.Reported on 07/14/2024 IBUPROFEN PO Take by mouth. Ac tive hydrOXYzine (ATARAX) 50 MG TabletIndicatio ns:Anxiety Take 1 Tablet by mouth every 6 hours as needed for Anxiety. 90 Tablet 3 Active Additional Information Patient not taking.Reported on 07/14/2024 escitalopram (LEXAPRO) 10 MG TabletIndicatio ns:Depression, unspecified depression type,Anxiety TAKE 1 TABLET BY MOUTH DAILY 90 Tablet 1 3 Active Additional Information Patient not taking.Reported on 07/14/2024 Phentermine HCl 37.5 MG TabletIndicatio ns:Weight gain Take 1 Tablet by mouth every morning (before breakfast). 30 Tablet 2 4 Active Additional Information Patient not taking.Reported on 07/14/2024 Polyethylene Glycol 3350 (PEG 3350) 17 GM/SCOOP PowderIndicatio ns:Constipation Take 17 g by mouth daily. Indications: Constipation 116 g Active Additional Information Patient not taking.Reported on 07/14/2024 ondansetron (ZOFRAN-ODT) 4 MG TABLET DISPERSIBLE DISSOLVE 1 TABLET ON THE TONGUE EVERY 6 HOURS NEEDED FOR NAUSEA OR VOMITING Active aspirin 81 MG Chewable Tablet Take 81 mg by mouth daily. Active Active Problems Problem Noted Date Diagnosed Date Anxiety 08/05/2019 Depression 08/05/2019 Injury of quadriceps muscle 04/25/2017 Sports injury 04/25/2017 Gastroesophageal reflux disease without esophagi tis 12/15/2016 Estimated Date of Delivery Comme nts Yes 09/11/2024 Encounters Date Type Department Care Team Description 07/14/2024 11:45 AM VEGETABLE SORTER Urgent Care Visit [facility] [address] [place] [address] Enid Nuñez APRN, JACOB Acute nasopharyngitis (Primary Dx); Acute cough Discharge Disposition: Discharged to home or Selfcare 07/14/2024 Travel 06/17/2024 Travel 06/12/2024 Transcribe Orders [facility] Laboratory Services [address] [place] [address] Katya Hernandez MD 06/11/2024 Transcribe Orders [facility] Central Scheduling [address] [place] [address] Katya Hernandez MD Encounter for supervision of normal , antepartum, unspecified (Primary Dx) 05/17/2024 8:55 AM VEGETABLE SORTER Urgent Care Visit [facility] [address] [place] [address] Enid Nuñez APRN, CNP Strep throat (Primary Dx); Sore throat Discharge Disposition: Discharged to home or Selfcare 05/17/2024 Travel from Last 3 Months Immunizations Immunization Administration Dates Next Due DTAP VACCINE 09/18/1999 DTP-Hib 01/02/1996, 5,01/31/1995,12/06 Hepatitis A, Pediatric, Unsp ecified Formulation 01/08/2008,01/02/2007 Hepatitis B Vaccine, Pediatric/adolescent 07/06/1995,1994,1994 Inactivated Polio Vaccine 09/18/1999 Influenza Vaccine, MDCK,quad rivalent, pres free 04/20/2020 Influenza Vaccine, Quadrivalent, PF 02/24/2021,1 ,02/09/2017 MMR Vaccine 09/18/1999,01/02/1996 Meningococcal MCV4O 01/09/2013 Meningococcal Vaccine, Unspe cified Formulation 01/08/2008 OPV 04/11/1995,01/31/1995,1994 TB Skin Test 03/15/2018 TDAP Vaccine 09/10/2021,03/15/2018,12/29/2005 Varicella Vaccine Live 01/19/2017,01/02/2007 Family History Medical History Relation Name Comments No Known Problems Father No Known Problems Mother Relation Name Status Comments Father Alive Mother Alive Social History Tobacco Use Types Packs/Day Years Used Date Smoking Tobacco: Never Smokeless Tobacco: Never Tobacco Cessation:Counseling Given: Not Answered Alcohol Use Standard Drinks/Week Comments Yes 0 (1 standard drink = 0.6 oz pur e alcohol) occasionally PHQ-2 Answer Date Recorded Total Score - Questions 1-9 0 03/30 Sexually Active Control Partners Comments Yes Male Estimated Date of Delivery Comme nts Yes 09/11/2024 Sex and Gender Information Value Date Recorded Sex Assigned at Not on file Legal Sex Female 10:00 PM CDT Gender Identity Not on file Sexual Orientation Not on file Last Filed Vital Signs Vital Sign Reading Time Taken Comments Blood Pressure 114/62 07/14/2024 12:10 PM VEGETABLE SORTER Pulse 85 07/14/2024 12:10 PM VEGETABLE SORTER Temperature 36.2 C (97.2 F) 07/14/2024 12:10 PM VEGETABLE SORTER Respiratory Rate 20 07/14/2024 12:10 PM VEGETABLE SORTER Oxygen Saturation 98% 07/14/2024 12:10 PM VEGETABLE SORTER Inhaled Oxygen Concentration - - Weight 88.5 kg (195 lb) 02/28/2024 9:01 PM CDT Height 172.7 cm (5' 8 ) 02/28/2024 9:01 PM CDT Body Mass Index 29.65 02/28/2024 9:01 PM CDT Plan of Treatment Health Maintenance Due Date Last Done Comments Hepatitis C Virus (HCV) Screening 1994 Pap Smear 09/21/2020 09/21/2017 SARS-COV-2 Immunization ( season) 2024 08/08/2020, 07/18/2020 DTaP/Tdap/Td Immunization (10 - Td or Tdap) 06/13/2034 06/13/2024, 09/10/2021, 03/15/2018, Additional history exists Td Immunization Every 10 Years (Adults With 1 Tdap) 06/13/2034 06/13/2024, 09/10/2021, 03/15/2018, Additional history exists Hepatitis B Immunization Completed 996, 1994, 1994 Meningococcal Immunization (ACWY) Completed 01/09/2013, 01/08/2008 Influenza Immunization Completed , 02/24/2021, 04/20/2020, Additional history exists Pneumococcal Immunization Combined Aged Out No longer eligible based on patient's age to complete this topic Respiratory Syncytial Virus (RSV) Immunization (Adult) (No Doses Required) Completed Rotavirus Immunization Aged Out No lo nger eligible based on patient's age to complete this topic Procedures Procedure Name Priority Date/Time Associated Diagnosis Comments POC SARS-COV-2 BY MOLECULAR Routine 07/14/2024 12:27 PM VEGETABLE SORTER Acute cough POC INFLUENZA A AND B BY MOLECULAR Routine 07/14/2024 12:27 PM VEGETABLE SORTER Acute cough POC GROUP A STREP BY MOLECULAR Routine 07/14/2024 12:23 PM VEGETABLE SORTER Acute cough GGTT, FIRST HOUR Routine 06/17/2024 8:50 AM VEGETABLE SORTER Encounter for supervision of normal , antepartum, unspecified GGTT, FASTING Routine 06/17/2024 8:50 AM VEGETABLE SORTER Encounter for supervision of normal , antepartum, unspecified GLUCOSE TOLERANCE GESTATIONAL (GGTT), 2 HOUR Routine 06/17/2024 8:50 AM VEGETABLE SORTER Encounter for supervision of normal , antepartum, unspecified HIV 1 & 2 ANTIBODY & ANTIGEN SCREEN Routine 06/17/2024 8:50 AM VEGETABLE SORTER Encounter for supervision of normal , antepartum, unspecified RPR SCREEN ONLY Routine 06/17/2024 8:50 AM VEGETABLE SORTER Encounter for supervision of normal , antepartum, unspecified CBC WITH AUTO DIFFERENTIAL Routine 06/17/2024 8:31 AM VEGETABLE SORTER Encounter for supervision of normal , antepartum, unspecified COMPLETE BLOOD COUNT (CBC) WITH DIFF Routine 06/17/2024 8:31 AM VEGETABLE SORTER Encounter for supervision of normal , antepartum, unspecified POC GROUP A STREP BY MOLECULAR Routine 05/17/2024 9:02 AM VEGETABLE SORTER Sore throat PATHOLOGY CYTOLOGY LIGHTING SPECIALIST Routine 09/21/2017 from Last 3 Months or Most Recently Relevant to Health Maintenance Results * POC SARS-COV-2 BY MOLECULAR (07/14/2024 12:27 PM VEGETABLE SORTER) SARSCOV2 Negative Negative, INVALID PROCEDURE CONTROL Valid 07/14/2024 12:2 7 PM VEGETABLE SORTER Enid Nuñez APRN, BILL SORTER POINT OF CARE TEST ING (MANUAL) Final Result * POC INFLUENZA A AND B BY MOLECULAR (07/14/2024 12:27 PM VEGETABLE SORTER) INFLUENZA A RNA Negative Negative, Invalid INFLUENZA B RNA Negative Negative, Invalid PROCEDURE CONTROL Valid 07/14/2024 12:2 7 PM VEGETABLE SORTER us Enid Nuñez APRN, BILL SORTER POINT OF CARE TEST ING (MANUAL) Final Result * POC GROUP A STREP BY MOLECULAR (07/14/2024 12:23 PM VEGETABLE SORTER) Only the most recent of2 resultswithin the time period is included. [facility] STREP A DNA Negative Negative, Invalid PROCEDURE CONTROL Valid 07/14/2024 12:2 3 PM VEGETABLE SORTER Enid Nuñez APRN, CNP POINT OF CARE TEST ING (MANUAL) Final Result * HIV 1 & 2 ANTIBODY & ANTIGEN SCREEN (06/17/2024 8:50 AM VEGETABLE SORTER) [facility] HIV 1 & 2 ANTIBODY & ANTIGEN SCREEN NON DETECTED NON DETECTED 06/17/2024 3:56 PM VEGETABLE SORTER [facility] Blood Venipuncture / Unknown 06/17/2024 8:50 AM VEGETABLE SORTER 06/17/2024 9:30 AM VEGETABLE SORTER us Katya Hernandez MD LAB SEND OUTS Final Result [facility] [address] [place] [address], * GGTT, FASTING (06/17/2024 8:50 AM VEGETABLE SORTER) [facility] GLUCOSE, FASTING GESTATIONAL 79 50 - 94 mg/dL 06/17/2024 2:43 PM VEGETABLE SORTER [facility] DOSE <=0 g 06/17/2024 2:43 PM VEGETABLE SORTER [facility] Blood Venipuncture / Unknown 06/17/2024 8:50 AM VEGETABLE SORTER 06/17/2024 9:30 AM VEGETABLE SORTER us Katya Hernandez MD CHEMISTRY ORDERABLES Final Resu lt [facility] [address] [place] [address] * GGTT, FIRST HOUR (06/17/2024 8:50 AM VEGETABLE SORTER) [facility] GLUCOSE, 1 HR GESTATIONAL 109 50 - 179 mg/dL 06/17/2024 10:20 AM VEGETABLE SORTER [facility] Blood Venipuncture / Unknown 06/17/2024 8:50 AM VEGETABLE SORTER 06/17/2024 10:02 AM VEGETABLE SORTER us Katya Hernandez MD CHEMISTRY ORDERABLES Final Resu lt [facility] [address] [place] [address] * RPR SCREEN ONLY (06/17/2024 8:50 AM VEGETABLE SORTER) [facility] RPR NONREACTIVE NONREACTIVE 06/18/2024 7:54 AM VEGETABLE SORTER [facility] Blood Venipuncture / Unknown 06/17/2024 8:50 AM VEGETABLE SORTER 06/17/2024 9:30 AM VEGETABLE SORTER us Katya Hernandez MD IMMUNOLOGY ORDERABLES Final Res ult [facility] [address] [place] [address], * (ABNORMAL) CBC WITH AUTO DIFFERENTIAL (06/17/2024 8:31 AM VEGETABLE SORTER) [facility] WBC 11.04 4.00 - 12.00 10(3)/mcL 06/17/2024 9:33 AM VEGETABLE SORTER [facility] RBC 3.88 3.80 - 5.30 10(6)/mcL 06/17/2024 9:33 AM VEGETABLE SORTER [facility] HEMOGLOBIN (HGB) 12.1 12.0 - 15.8 g/dL 06/17/2024 9:33 AM VEGETABLE SORTER [facility] HEMATOCRIT (HCT) 34.6(L) 36.0 - 47.0 % 06/17/2024 9:33 AM VEGETABLE SORTER [facility] MCV 89.2 82.0 - 96.0 fL 06/17/2024 9:33 AM [facility] MCH 31.2 26.0 - 34.0 pg 06/17/2024 9:33 AM [facility] MCHC 35.0 31.0 - 36.0 g/dL 06/17/2024 9:33 AM [facility] PLATELET COUNT 240 140 - 440 10(3)/[facility] 06/17/2024 9:33 AM [facility] RDW 11.9 11.8 - 15.5 % 06/17/2024 9:33 AM [facility] MPV 10.5 9.7 - 12.4 fL 06/17/2024 9:33 AM [facility] NEUTROPHILS 82.0(H) 47.0 - 73.0 % 06/17/2024 9:33 AM [facility] LYMPHOCYTES 11.8(L) 18.0 - 42.0 % 06/17/2024 9:33 AM [facility] MONOCYTES 4.8 4.0 - 12.0 % 06/17/2024 9:33 AM [facility] EOSINOPHILS 1.0 0.0 - 5.0 % 06/17/2024 9:33 AM [facility] BASOPHILS 0.4 0.0 - 1.0 % 06/17/2024 9:33 AM [facility] ABSOLUTE NEUTROPHILS 9.06(H) 1.60 - 7.70 10(3)/[facility] 06/17/2024 9:33 AM [facility] ABSOLUTE LYMPHOCYTES 1.30 1.30 - 3.20 10(3)/[facility] 06/17/2024 9:33 AM [facility] ABSOLUTE MONOCYTES 0.53 0.20 - 1.00 10(3)/[facility] 06/17/2024 9:33 AM [facility] ABSOLUTE EOSINOPHIL 0.11 0.00 - 0.40 10(3)/[facility] 06/17/2024 9:33 AM [facility] ABSOLUTE BASOPHILS 0.04 0.00 - 0.10 10(3)/mcL 06/17/2024 9:33 AM VEGETABLE SORTER [facility] NRBC PER 100 WBC 0 06/17/19 9:33 AM VEGETABLE SORTER [facility] Blood Venipuncture / Unknown 06/17/2024 8:31 AM VEGETABLE SORTER 06/17/2024 9:30 AM VEGETABLE SORTER us Katya Hernandez MD HEMATOLOGY ORDERABLES Final Res ult [facility] [address] [place] [address] * PATHOLOGY CYTOLOGY LIGHTING SPECIALIST (09/21/2017) Specimen of unknown material (specimen) us Anny Souza V, PACKER, BILL SORTER PATHOLOGY/CYTOLOGY OR DERABLES Final Result from Last 3 Months or Most Recently Relevant to Health Maintenance Insurance [facility] What's More Alive Than You Care Teams Oyster Sorter Relationship Specialty Start Date End Date Karolina Caro PAC [address] [place] [address] PCP - General Physician Dry Wall Sprayer 08/14/23 Shanel Sim, PACKER, BILL SORTER 2 [facility] [address] [place] [address] Certified Nurse Practitioner 12/26/18
--- OUTSIDE RECORDS SUMMARY | 2024-08-08 16:18 | XMS_ITS | Encounter Summary ---
Author Organization [facility] Address [address] [place] [address] Phone Care Team Providers Care Porcelain Enamel Laborer Name Role Phone Pass, Shanel Desir APRN, MARKET NEWS REPORTER Unavailable [phone] Karolina Caro PAC Primary Care Pro vider Encounter Details Date Type Department Care Team (Late st Contact Info) Description 06/12/2024 Transcribe [facility] [address] [place] [address] Katya Hernandez MD [address] [place] [address] Social History Tobacco Use Types Packs/Day Years [...] on file documented as of this encounter Plan of Treatment Not on file documented as of this encounter Visit Diagnoses Not on filedocumented in this encounter Additional Health Concerns Infection Onset Date Last Indicated Resolved Time Respiratory Rule-Out 07/14/2024 07/14/202407/14/2 025 12:29 PM EQUIPMENT MONITOR PHOTOTYPESETTING COVID - 19 07/14/2024 07/14/2024 07/14/2024 12:2 7 PM EQUIPMENT MONITOR PHOTOTYPESETTING Assessment Noted Time PHQ-9 Depression Total Score: 0 04/20/20 22 8:00 AM EQUIPMENT MONITOR PHOTOTYPESETTING documented as of this encounter Care Teams Porcelain Enamel Laborer Relationship Specialty Start Date End Date Karolina Caro, [facility] [address] [place] [address] PCP - General Physician Foundation Digger 08/14/23 Shanel Sim APRN, MARKET NEWS REPORTER 2 [facility] [address] [place] [address] Certified Nurse Practitioner 12/26/18 documented as of this encounter
--- OUTSIDE RECORDS SUMMARY | 2024-08-08 16:18 | XMS_ITS | Encounter Summary ---
Author Organization [facility] Address [address] [place] [address] Phone Care Team Providers Care Job Superintendent Name Role Phone Karolina Caro PAC Primary Care Pro vider Shanel Sim DELINEATOR, MANUFACTURING TEST TECHNICIAN Unavailable Rica Mercado DELINEATOR, MANUFACTURING TEST TECHNICIAN Primary Care Provid er Ofelia Pantoja DELINEATOR, MANUFACTURING TEST TECHNICIAN Primary Care Provider + Karolina Caro PAC Primary Care Pro vider Reason for Visit * Reason Comments Medication Refill Encounter Details Date Type Department Care Team (Late st Contact Info) Description 01/26/2020 Refill [facility] [address] [place] [phone] Karolina Caro, PAC [address] [place] [address] Medication Refill Social History Tobacco Use Types Packs/Day Years Used Date Smoking Tobacco: Never Smokeless Tobacco: Never Alcohol Use Standard Drinks/Week Comments No 0 (1 standard drink = 0.6 oz pur e alcohol) PHQ-2 Answer Date Recorded PHQ-2 Score 0 02/11/2019 Comments No Sex and Gender Information Value Date Recorded Sex Assigned at Not on file Legal Sex Female 10:00 PM CDT Gender Identity Not on file Sexual Orientation Not on file documented as of this encounter Miscellaneous Notes * Telephone Encounter - Kell Shaffer RN - 01/27/2020 6:33 PM CDT Refill pended documented in this encounter Plan of Treatment Not on file documented as of this encounter Visit Diagnoses Diagnosis Anxiety Anxiety state, unspecified documented in this encounter Additional Health Concerns Infection Onset Date Last Indicated Resolved Time COVID - 19 04/03/2024 04/03/2024 04/03/2024 9:02 AM WIRE MESH GATE ASSEMBLER Respiratory Rule-Out 04/03/2024 04/03/2024 024 9:04 AM WIRE MESH GATE ASSEMBLER Respiratory Rule-Out 07/14/2024 07/14/2024 025 12:29 PM WIRE MESH GATE ASSEMBLER COVID - 19 07/14/2024 07/14/2024 07/14/2024 12:2 7 PM WIRE MESH GATE ASSEMBLER Assessment Noted Time PHQ-9 Depression Total Score: 0 12/27/19 19 1:10 PM CDT documented as of this encounter Care Teams Job Superintendent Relationship Specialty Start Date End Date Karolina Caro, PAC [address] [place] [address] PCP - General Physician Firearms Assembly Supervisor 12/15/16 02/23/21 Rica Mercado APRN, MANUFACTURING TEST TECHNICIAN [address] [address] PCP - General Advanced Practice Nurse 02/24/21 Ofelia Pantoja DELINEATOR, MANUFACTURING TEST TECHNICIAN [address] [place] [address] PCP - General Advanced Practice Nurse 07/13/22 Karolina Caro, PAC [address] [place] [address] PCP - General Physician Firearms Assembly Supervisor 08/14/23 Shanel Sim APRN, MANUFACTURING TEST TECHNICIAN 2 [facility] [address] [place] [address] Certified Nurse Practitioner 12/26/18 documented as of this encounter
--- OUTSIDE RECORDS SUMMARY | 2024-08-08 16:18 | XMS_ITS | Encounter Summary ---
Author Organization [facility] Address [address] [place] [address] Phone Care Team Providers Care Wood Milling Machine Hand Name Role Phone Karolina Caro PAC Primary Care Pro vider Shanel Sim LANDSCAPE ENGINEER, MD PEDIATRIC ALLERGIST Unavailable [phone] Rica Mercado LANDSCAPE ENGINEER, MD PEDIATRIC ALLERGIST Primary Care Provid er Ofelia Pantoja LANDSCAPE ENGINEER, MD PEDIATRIC ALLERGIST Primary Care Provider + Karolina Caro PAC Primary Care Pro vider Reason for Visit * Reason Onset Date Comments Medication Refill 07/22/2020 Encounter Details Date Type Department Care Team (Late st Contact Info) Description 07/22/[address] [facility] - Family [facility] [address] [place] [id number] Karolina Caro, PAC [address] [place] [address] Medication Refill Social History Tobacco Use Types [...] encounter Miscellaneous Notes * Telephone Encounter - Carolynn Love RN - 07/22/2020 2:56 PM CST Please review and sign. LER * Telephone Encounter - Sharon Browning - 07/22/2020 2:01 PM CST Received a faxed Rx request from pharmacy. Reordered refill medication(s) requested and pended for nurse and physician/JANN review. Refill encounter routed to nurse [employer] for processing. LER documented in this encounter Plan of Treatment Not on file documented as of this encounter Visit Diagnoses Diagnosis Anxiety Anxiety state, unspecified documented in this encounter Additional Health Concerns Infection Onset Date Last Indicated Resolved Time COVID - 19 04/03/2024 04/03/2024 04/03/2024 9:02 AM RIPPLER Respiratory Rule-Out 04/03/2024 04/03/2024 024 9:04 AM RIPPLER Respiratory Rule-Out 07/14/2024 07/14/2024 025 12:29 PM RIPPLER COVID - 19 07/14/2024 07/14/2024 07/14/2024 12:2 7 PM RIPPLER Assessment Noted Time PHQ-9 Depression Total Score: 0 12/27/19 19 1:10 PM CDT documented as of this encounter Care Teams Wood Milling Machine Hand Relationship Specialty Start Date End Date Karolina Caro PAC [address] [place] [address] PCP - General Physician Commercial Installer 12/15/16 02/23/21 Rica Mercado APRN, MD PEDIATRIC ALLERGIST [address] [address] PCP - General Advanced Practice Nurse 02/24/21 Ofelia Pantoja, LANDSCAPE ENGINEER, MD PEDIATRIC ALLERGIST [address] [place] [address] PCP - General Advanced Practice Nurse 07/13/22 Karolina Caro, [facility] [address] [place] [address] PCP - General Physician Commercial Installer 08/14/23 Shanel Sim APRN, MD PEDIATRIC ALLERGIST 2 [facility] [address] [place] [address] Certified Nurse Practitioner 12/26/18 documented as of this encounter
== END 2024-08-08 14:29 | disposition home or self-care (01) ==
PROVIDERS: PCP Physician Assistant; Visit Provider Obstetrics & Gynecology
DX: O13.9 Gestational [pregnancy-induced] hypertension without significant proteinuria, unspecified trimester (principal); O09.93 Supervision of high risk pregnancy, unspecified, third trimester; Z3A.00 Weeks of gestation of pregnancy not specified
CPT/HCPCS: 76816

== ENCOUNTER 2024-08-09 16:55 | Outpatient (CLI) | payer BC, OTHER, SELFPAY ==
--- OUTSIDE RECORDS SUMMARY | 2024-08-09 17:12 | XMS_ITS | Encounter Summary ---
Author Organization [facility] Address [address] [place] [address] Phone Care Team Providers Care Ob Tech Name Role Phone Karolina Caro PAC Primary Care Pro vider Shanel Sim PACKAGE WORKER, ART INSTALLER Unavailable [phone] Rica Mercado PACKAGE WORKER, ART INSTALLER Primary Care Provid er Ofelia Pantoja PACKAGE WORKER, ART INSTALLER Primary Care Provider + Karolina Caro PAC Primary Care Pro vider Reason for Visit * Reason Onset Date Comments Medication Refill 07/22/2020 Encounter Details Date Type Department Care Team (Late st Contact Info) Description 07/22/2020 Refill [facility] - Family [facility] [address] [place] [id number] Karolina Caro, PAC [address] [place] [address] Medication Refill Social History Tobacco Use Types [...] 2:56 PM CST Please review and sign. UREMENT INTERNSHIP * Telephone Encounter - Sharon Browning - 07/22/2020 2:01 PM CST Received a faxed Rx request from pharmacy. Reordered refill medication(s) requested and pended for nurse and physician/JANN review. Refill encounter routed to nurse [employer] for processing. UREMENT INTERNSHIP documented in this encounter Plan of Treatment Not on file documented as of this encounter Visit Diagnoses Diagnosis Anxiety Anxiety state, unspecified documented in this encounter Additional Health Concerns Infection Onset Date Last Indicated Resolved Time COVID - 19 04/03/2024 04/03/2024 04/03/2024 9:02 AM PROCUREMENT INTERNSHIP Respiratory Rule-Out 04/03/2024 04/03/2024 024 9:04 AM PROCUREMENT INTERNSHIP Respiratory Rule-Out 07/14/2024 07/14/2024 025 12:29 PM PROCUREMENT INTERNSHIP COVID - 19 07/14/2024 07/14/2024 07/14/2024 12:2 7 PM PROCUREMENT INTERNSHIP Assessment Noted Time PHQ-9 Depression Total Score: 0 12/27/19 19 1:10 PM CDT documented as of this encounter Care Teams Ob Tech Relationship Specialty Start Date End Date Karolina Caro PAC [address] [place] [address] PCP - General Physician County Manager 12/15/16 02/23/21 Rica Mercado APRN, ART INSTALLER #[address] [address] PCP - General Advanced Practice Nurse 02/24/21 Ofelia Pantoja, PACKAGE WORKER, ART INSTALLER [address] [place] [address] PCP - General Advanced Practice Nurse 07/13/22 Karolina Caro, [facility] [address] [place] [address] PCP - General Physician County Manager 08/14/23 Shanel Sim APRN, ART INSTALLER 2 [facility] [address] [place] [address] Certified Nurse Practitioner 12/26/18 documented as of this encounter
--- OUTSIDE RECORDS SUMMARY | 2024-08-09 17:12 | XMS_ITS | Encounter Summary ---
Author Organization [facility] Address [address] [place] [address] Phone Care Team Providers Care Pastoral Ministries Professor Name Role Phone Pass, Shanel Desir APRN, BARNWORKER GROOM Unavailable [phone] Karolina Caro PAC Primary Care Pro vider Encounter Details Date Type Department Care Team (Late st Contact Info) Description 06/12/2024 [facility] 1 [place] [address] Katya Hernandez MD [address] [place] [address] Social History Tobacco Use Types [...] Respiratory Rule-Out 07/14/2024 07/14/202407/14/2 025 12:29 PM FARROWING MANAGER COVID - 19 07/14/2024 07/14/2024 07/14/2024 12:2 7 PM FARROWING MANAGER Assessment Noted Time PHQ-9 Depression Total Score: 0 04/20/20 22 8:00 AM FARROWING MANAGER documented as of this encounter Care Teams Pastoral Ministries Professor Relationship Specialty Start Date End Date Karolina Caro, [facility] [address] [place] [address] PCP - General Physician Steel Cutter 08/14/23 Shanel Sim APRN, BARNWORKER GROOM 2 [facility] [address] [place] [address] Certified Nurse Practitioner 12/26/18 documented as of this encounter
--- OUTSIDE RECORDS SUMMARY | 2024-08-09 17:12 | XMS_ITS | Clinical Summary ---
Author Organization [facility] Address [address] [place] [address] Phone Care Team Providers Care Farm Marketer Name Role Phone Pass, Shanel Desir APRN, PUBLIC ADDRESS SYSTEM OPERATOR Unavailable Karolina Caro PAC Primary Care Pro vider [...] Department Care Team Description 07/14/2024 11:45 AM SPIDER ASSEMBLER Urgent Care Visit [facility] [address] [place] [address] Enid Nuñez APRN, JACOB Acute nasopharyngitis (Primary Dx); Acute cough Discharge Disposition: Discharged to home or Selfcare 07/14/2024 Travel 06/17/2024 Travel 06/12/2024 Transcribe Orders [facility] Laboratory Services 1 [place] [address] Katya Hernandez MD 06/11/2024 Transcribe Orders [facility] Central Scheduling 1 [place] [address] Katya Hernandez MD Encounter for supervision of normal , antepartum, unspecified (Primary Dx) 05/17/2024 8:55 AM SPIDER ASSEMBLER Urgent Care Visit [facility] [address] [place] [address] Enid Nuñez APRN, CNP Strep throat (Primary [...] Comments Blood Pressure 114/62 07/14/2024 12:10 PM SPIDER ASSEMBLER Pulse 85 07/14/2024 12:10 PM SPIDER ASSEMBLER Temperature 36.2 C (97.2 F) 07/14/2024 12:10 PM SPIDER ASSEMBLER Respiratory Rate 20 07/14/2024 12:10 PM SPIDER ASSEMBLER Oxygen Saturation 98% 07/14/2024 12:10 PM SPIDER ASSEMBLER Inhaled Oxygen Concentration - - Weight 88.5 [...] SARS-COV-2 BY MOLECULAR Routine 07/14/2024 12:27 PM SPIDER ASSEMBLER Acute cough POC INFLUENZA A AND B BY MOLECULAR Routine 07/14/2024 12:27 PM SPIDER ASSEMBLER Acute cough POC GROUP A STREP BY MOLECULAR Routine 07/14/2024 12:23 PM SPIDER ASSEMBLER Acute cough GGTT, FIRST HOUR Routine 06/17/2024 8:50 AM SPIDER ASSEMBLER Encounter for supervision of normal , antepartum, unspecified GGTT, FASTING Routine 06/17/2024 8:50 AM SPIDER ASSEMBLER Encounter for supervision of normal , antepartum, unspecified GLUCOSE TOLERANCE GESTATIONAL (GGTT), 2 HOUR Routine 06/17/2024 8:50 AM SPIDER ASSEMBLER Encounter for supervision of normal , antepartum, unspecified HIV 1 & 2 ANTIBODY & ANTIGEN SCREEN Routine 06/17/2024 8:50 AM SPIDER ASSEMBLER Encounter for supervision of normal , antepartum, unspecified RPR SCREEN ONLY Routine 06/17/2024 8:50 AM SPIDER ASSEMBLER Encounter for supervision of normal , antepartum, unspecified CBC WITH AUTO DIFFERENTIAL Routine 06/17/2024 8:31 AM SPIDER ASSEMBLER Encounter for supervision of normal , antepartum, unspecified COMPLETE BLOOD COUNT (CBC) WITH DIFF Routine 06/17/2024 8:31 AM SPIDER ASSEMBLER Encounter for supervision of normal , antepartum, unspecified POC GROUP A STREP BY MOLECULAR Routine 05/17/2024 9:02 AM SPIDER ASSEMBLER Sore throat PATHOLOGY CYTOLOGY CORPORATE TECHNICAL RECRUITER Routine 09/21/2017 from Last 3 Months or Most Recently Relevant to Health Maintenance Results * POC SARS-COV-2 BY MOLECULAR (07/14/2024 12:27 PM SPIDER ASSEMBLER) SARSCOV2 Negative Negative, INVALID PROCEDURE CONTROL Valid 07/14/2024 12:2 7 PM SPIDER ASSEMBLER Enid Nuñez APRN, PUBLIC ADDRESS SYSTEM OPERATOR POINT OF CARE TEST ING (MANUAL) Final Result * POC INFLUENZA A AND B BY MOLECULAR (07/14/2024 12:27 PM SPIDER ASSEMBLER) INFLUENZA A RNA Negative Negative, Invalid INFLUENZA B RNA Negative Negative, Invalid PROCEDURE CONTROL Valid 07/14/2024 12:2 7 PM SPIDER ASSEMBLER us Enid Nuñez APRN, PUBLIC ADDRESS SYSTEM OPERATOR POINT OF CARE TEST ING (MANUAL) Final Result * POC GROUP A STREP BY MOLECULAR (07/14/2024 12:23 PM SPIDER ASSEMBLER) Only the most recent of2 resultswithin the time period is included. [facility] STREP A DNA Negative Negative, Invalid PROCEDURE CONTROL Valid 07/14/2024 12:2 3 PM SPIDER ASSEMBLER Enid Nuñez APRN, CNP POINT OF CARE TEST ING (MANUAL) Final Result * HIV 1 & 2 ANTIBODY & ANTIGEN SCREEN (06/17/2024 8:50 AM SPIDER ASSEMBLER) [facility] HIV 1 & 2 ANTIBODY & ANTIGEN SCREEN NON DETECTED NON DETECTED 06/17/2024 3:56 PM SPIDER ASSEMBLER [facility] Blood Venipuncture / Unknown 06/17/2024 8:50 AM SPIDER ASSEMBLER 06/17/2024 9:30 AM SPIDER ASSEMBLER us Katya Hernandez MD LAB SEND OUTS Final Result [facility] [address] [place] [address], * GGTT, FASTING (06/17/2024 8:50 AM SPIDER ASSEMBLER) [facility] GLUCOSE, FASTING GESTATIONAL 79 50 - 94 mg/dL 06/17/2024 2:43 PM SPIDER ASSEMBLER [facility] DOSE <=0 g 06/17/2024 2:43 PM SPIDER ASSEMBLER [facility] Blood Venipuncture / Unknown 06/17/2024 8:50 AM SPIDER ASSEMBLER 06/17/2024 9:30 AM SPIDER ASSEMBLER us Katya Hernandez MD CHEMISTRY ORDERABLES Final Resu lt [facility] [address] [place] [address] * GGTT, FIRST HOUR (06/17/2024 8:50 AM SPIDER ASSEMBLER) [facility] GLUCOSE, 1 HR GESTATIONAL 109 50 - 179 mg/dL 06/17/2024 10:20 AM SPIDER ASSEMBLER [facility] Blood Venipuncture / Unknown 06/17/2024 8:50 AM SPIDER ASSEMBLER 06/17/2024 10:02 AM SPIDER ASSEMBLER us Katya Hernandez MD CHEMISTRY ORDERABLES Final Resu lt [facility] [address] [place] [address] * RPR SCREEN ONLY (06/17/2024 8:50 AM SPIDER ASSEMBLER) [facility] RPR NONREACTIVE NONREACTIVE 06/18/2024 7:54 AM SPIDER ASSEMBLER [facility] Blood Venipuncture / Unknown 06/17/2024 8:50 AM SPIDER ASSEMBLER 06/17/2024 9:30 AM SPIDER ASSEMBLER us Katya Hernandez MD IMMUNOLOGY ORDERABLES Final Res ult [facility] [address] [place] [address], * (ABNORMAL) CBC WITH AUTO DIFFERENTIAL (06/17/2024 8:31 AM SPIDER ASSEMBLER) [facility] WBC 11.04 4.00 - 12.00 10(3)/mcL 06/17/2024 9:33 AM SPIDER ASSEMBLER [facility] RBC 3.88 3.80 - 5.30 10(6)/mcL 06/17/2024 9:33 AM SPIDER ASSEMBLER [facility] HEMOGLOBIN (HGB) 12.1 12.0 - 15.8 g/dL 06/17/2024 9:33 AM SPIDER ASSEMBLER [facility] HEMATOCRIT (HCT) 34.6(L) 36.0 - 47.0 % 06/17/2024 9:33 AM SPIDER ASSEMBLER [facility] MCV 89.2 82.0 - 96.0 fL 06/17/2024 9:33 AM [facility] MCH 31.2 26.0 - 34.0 pg 06/17/2024 9:33 AM [facility] MCHC 35.0 31.0 - 36.0 g/dL 06/17/2024 9:33 AM [facility] PLATELET COUNT 240 140 - 440 10(3)/[facility] 06/17/2024 9:33 AM [facility] RDW 11.9 11.8 - 15.5 % 06/17/2024 9:33 AM [facility] MPV 10.5 9.7 - 12.4 fL 06/17/2024 9:33 AM [facility] NEUTROPHILS 82.0(H) 47.0 - 73.0 % 06/17/2024 9:33 AM [facility] LYMPHOCYTES 11.8(L) 18.0 - 42.0 % 06/17/2024 9:33 AM [facility] MONOCYTES 4.8 4.0 - 12.0 % 06/17/2024 9:33 AM [facility] EOSINOPHILS 1.0 0.0 - 5.0 % 06/17/2024 9:33 AM [facility] BASOPHILS 0.4 0.0 - 1.0 % 06/17/2024 9:33 AM [facility] ABSOLUTE NEUTROPHILS 9.06(H) 1.60 - 7.70 10(3)/[facility] 06/17/2024 9:33 AM [facility] ABSOLUTE LYMPHOCYTES 1.30 1.30 - 3.20 10(3)/[facility] 06/17/2024 9:33 AM [facility] ABSOLUTE MONOCYTES 0.53 0.20 - 1.00 10(3)/[facility] 06/17/2024 9:33 AM [facility] ABSOLUTE EOSINOPHIL 0.11 0.00 - 0.40 10(3)/[facility] 06/17/2024 9:33 AM [facility] ABSOLUTE BASOPHILS 0.04 0.00 - 0.10 10(3)/mcL 06/17/2024 9:33 AM SPIDER ASSEMBLER [facility] NRBC PER 100 WBC 0 06/17/19 9:33 AM SPIDER ASSEMBLER [facility] Blood Venipuncture / Unknown 06/17/2024 8:31 AM SPIDER ASSEMBLER 06/17/2024 9:30 AM SPIDER ASSEMBLER us Katya Hernandez MD HEMATOLOGY ORDERABLES Final Res ult [facility] [address] [place] [address] * PATHOLOGY CYTOLOGY CORPORATE TECHNICAL RECRUITER (09/21/2017) Specimen of unknown material (specimen) us Anny Souza V, SOCIAL MEDIA DESIGNER, PUBLIC ADDRESS SYSTEM OPERATOR PATHOLOGY/CYTOLOGY OR DERABLES Final Result from Last 3 Months or Most Recently Relevant to Health Maintenance Insurance [facility] [employer] Care Teams Farm Marketer Relationship Specialty Start Date End Date Karolina Caro PAC [address] [place] [address] PCP - General Physician Metallurgical Engineering Technician 08/14/23 Shanel Sim, SOCIAL MEDIA DESIGNER, PUBLIC ADDRESS SYSTEM OPERATOR 2 [facility] [address] [place] [address] Certified Nurse Practitioner 12/26/18
--- OUTSIDE RECORDS SUMMARY | 2024-08-09 17:12 | XMS_ITS | Encounter Summary ---
Author Organization [facility] Address [address] [place] [address] Phone Care Team Providers Care Diversional Therapist'S Assistant Name Role Phone Karolina Caro PAC Primary Care Pro vider Shanel Sim EQUITIES TRADER, SYRUP FILTERER Unavailable [phone] Rica Mercado EQUITIES TRADER, SYRUP FILTERER Primary Care Provid er Ofelia Pantoja EQUITIES TRADER, SYRUP FILTERER Primary Care Provider + Karolina Caro PAC Primary Care Pro vider Reason for Visit * Reason Comments Medication Refill Encounter Details Date Type Department Care Team (Late st Contact Info) Description 01/26/2020 Refill [facility] [address] [place] [phone] Karolina Caro, PAC [address] [place] [address] Medication Refill Social History Tobacco Use Types [...] - 19 04/03/2024 04/03/2024 04/03/2024 9:02 AM PRINCIPLE SOFTWARE ENGINEER Respiratory Rule-Out 04/03/2024 04/03/2024 024 9:04 AM PRINCIPLE SOFTWARE ENGINEER Respiratory Rule-Out 07/14/2024 07/14/2024 025 12:29 PM PRINCIPLE SOFTWARE ENGINEER COVID - 19 07/14/2024 07/14/2024 07/14/2024 12:2 7 PM PRINCIPLE SOFTWARE ENGINEER Assessment Noted Time PHQ-9 Depression Total Score: 0 12/27/19 19 1:10 PM CDT documented as of this encounter Care Teams Diversional Therapist'S Assistant Relationship Specialty Start Date End Date Karolina Caro, PAC [address] [place] [address] PCP - General Physician Map And Chart Mounter 12/15/16 02/23/21 Rica Mercado APRN, SYRUP FILTERER #[address] [address] PCP - General Advanced Practice Nurse 02/24/21 Ofelia Pantoja EQUITIES TRADER, SYRUP FILTERER [address] [place] [address] PCP - General Advanced Practice Nurse 07/13/22 Karolina Caro, PAC [address] [place] [address] PCP - General Physician Map And Chart Mounter 08/14/23 Shanel Sim APRN, SYRUP FILTERER 2 [facility] [address] [place] [address] Certified Nurse Practitioner 12/26/18 documented as of this encounter
--- OUTSIDE RECORDS SUMMARY | 2024-08-09 17:12 | XMS_ITS | Encounter Summary ---
Author Organization [facility] Address [address] [place] [address] Phone Care Team Providers Care Helicopter Dispatcher Name Role Phone Pass, Shanel Desir COGENERATION OPERATOR, SCADA TECHNICIAN Unavailable [phone] Ofelia Pantoja COGENERATION OPERATOR, SCADA TECHNICIAN Primary Care Provider + Karolina Caro [facility] Primary Care Pro vider Reason for Visit * Reason Comments Medication Refill Encounter Details Date Type Department Care Team (Late st Contact Info) Description 05/08/2023 Refill [facility] [address] [place] [address] Ofelia Pantoja, COGENERATION OPERATOR, SCADA TECHNICIAN [address] [place] [address] Medication Refill Social History Tobacco Use Types [...] with SSRI for at least 6 months DEPARTMENT BATTALION CHIEF documented in this encounter Plan of Treatment Not on file documented as of this encounter Visit Diagnoses Diagnosis Depression, unspecified depression type Anxiety Anxiety state, unspecified documented in this encounter Additional Health Concerns Infection Onset Date Last Indicated Resolved Time COVID - 19 04/03/2024 04/03/2024 04/03/2024 9:02 AM FIRE DEPARTMENT BATTALION CHIEF Respiratory Rule-Out 04/03/2024 04/03/2024 024 9:04 AM FIRE DEPARTMENT BATTALION CHIEF Respiratory Rule-Out 07/14/2024 07/14/2024 025 12:29 PM FIRE DEPARTMENT BATTALION CHIEF COVID - 19 07/14/2024 07/14/2024 07/14/2024 12:2 7 PM FIRE DEPARTMENT BATTALION CHIEF Assessment Noted Time PHQ-9 Depression Total Score: 0 04/20/20 22 8:00 AM FIRE DEPARTMENT BATTALION CHIEF documented as of this encounter Care Teams Helicopter Dispatcher Relationship Specialty Start Date End Date Ofelia Pantoja, COGENERATION OPERATOR, SCADA TECHNICIAN [address] [place] [address] PCP - General Advanced Practice Nurse 07/13/22 Karolina Caro, PAC [address] [place] [address] PCP - General Physician Automotive Artist 08/14/23 Shanel Sim APRN, SCADA TECHNICIAN 2 [facility] [address] [place] [address] Certified Nurse Practitioner 12/26/18 documented as of this encounter
[2024-08-09 17:30] VITALS: BP 136/86; PULSE 87
[2024-08-09 17:39] LABS: Basophils Percent Auto 0.2 % (0.2-1.2); Eosinophils Absolute Auto 0.1 K/mm3 (0-0.3); Eosinophils Percent Auto 0.7 % (0-4.4); Hematocrit 31.1 % (37.0-47.0); Hemoglobin 10.5 g/dL (12.0-15.0); Immature Granulocyte Absolute 0.05 K/mm3 (0.00-0.031); Immature Granulocyte Percent A 0.4 % (0-0.5); Lymphocytes Absolute Auto 1.37 K/mm3 (0.9-3.2); Lymphocytes Percent Auto 11.9 % (18.3-44.2); Mean Corpuscular HGB Conc 33.8 g/dl (32-36); Mean Corpuscular Hemoglobin 28.9 pg (26-34); Mean Corpuscular Volume 85.7 fl (80-100); Mean Platelet Volume 10.6 fl (7.4-10.4); Monocytes Absolute Auto 0.7 K/mm3 (0.1-0.6); Monocytes Percent Auto 6.4 % (2.6-8.5); Neutrophils Absolute Auto 9.2 K/mm3 (1.3-6.7); Neutrophils Percent Auto 80.4 % (45.5-73.1); Platelet Count Result 217 k/mm3 (150-375); Red Blood Count 3.63 M/mm3 (4.2-5.4); Red Cell Distribution Width 11.9 % (11.5-14.5); White Blood Count 11.5 K/mm3 (4.5-10.0)
[2024-08-09 17:45] VITALS: BP 121/75; PULSE 90
[2024-08-09 17:46] LABS: Creatinine Urine 20.9 mg/dL; Total Protein Urine Random 15 mg/dL; Ur Ttl Prot Creatinine Ratio 0.72 mg/mg (0-0.20)
[2024-08-09 17:52] LABS: Alanine Aminotransferase 19 U/L (6-35); Albumin Level 3.6 g/dL (3.5-5.1); Alkaline Phosphatase 108 U/L (38-126); Anion Gap 9 mmol/L (4-12); Aspartate Amino Transferase 21 U/L (14-36); Bilirubin,Total 0.3 mg/dL (0.2-1.3); Blood Urea Nitrogen 7 mg/dL (7-17); Calcium 9.1 mg/dL (8.4-10.2); Carbon Dioxide 19 mmol/L (22-30); Chloride 105 mmol/L (98-107); Estimated Glomerular Filt Rate > 60; Glucose 81 mg/dL (65-110); Potassium 3.8 mmol/L (3.4-5.0); Sodium 133 mmol/L (137-145); Uric Acid 3.6 mg/dL (2.5-7.5)
[2024-08-09 17:55] LABS: Add Urine Microscopic? YES; Appearance Urine Clear (Clear); Bacteria Urine None Seen /hpf; Bilirubin Urine Negative (Negative); Blood Urine Negative (Negative); Color Urine Yellow (Yellow); Glucose Urine UA Negative (Negative); Ketones Urine Negative (Negative); Leukocyte Esterase Ur 2+ LEU/UL (Negative); Need Manual Microscopic Reviewed; Nitrate Urine Negative (Negative); Non Pathogenic Casts 0-2; Protein Urine Negative (Negative); RBC Urine 0-2 /hpf (0-2); Specific Grav Ur 1.004 (1.001-1.035); Squamous Epithelial Cell Urine Few /hpf (Few); Urobilinogen Urine 0.2 mg/dL (<2.0); pH Urine 6.5 (5.0-9.0)
[2024-08-09 17:57] VITALS: BP 136/86; PULSE 92; BMI 32.5
== END 2024-08-09 18:15 | disposition home or self-care (01) ==
LOC: ANHOBOP 17:10 → ANHOBPP 17:11
PROVIDERS: PCP Physician Assistant; Visit Provider Obstetrics & Gynecology
DX: O13.9 Gestational [pregnancy-induced] hypertension without significant proteinuria, unspecified trimester (principal); Z3A.00 Weeks of gestation of pregnancy not specified
CPT/HCPCS: 36415; 59025; 80053; 81001; 82570; 84156; 84550; 85025; 87086; 99199

== ENCOUNTER 2024-08-19 15:34 | Outpatient (RCR) | payer BC, OTHER, SELFPAY ==
[2024-08-12 17:11] VITALS: BP 132/71; PULSE 109
--- NOTE | ~2024-08-19 | US_ITS ---
EXAMINATION: US OB BPP wo non-stress DATE: 08/12/2024 17:55 INDICATION: Hypertension during third trimester TECHNIQUE: Real-time pelvic ultrasound was performed. The interpreting radiologist was not present fo r the study. COMPARISON: None. FINDINGS: There is a single living fetus in vertex presentation. The placenta is anterior and not low-lying. F etal heart rate is 133 beats per minute (bpm). Amniotic fluid volume is subjectively normal with norm al deepest vertical pocket measurement of 5.6 cm. Biophysical profile performed by the technologist: breathing (30 sec sustained breathing in 30 minutes): 2 out of 2 movement (3 gross body movements in 30 minutes): 2 out of 2 tone (one episode of vhcbaws-vqrltlkew-dhraxyh limb movement): 2 out of 2 Amniotic fluid pocket (2 cm): 2 out of 2 Total score: 8 out of 8 IMPRESSION: 1. Single living fetus in vertex presentation with heart rate of 133 bpm. 2. Biophysical profile 8 out of 8. Reviewed, dictated and finalized at location A.
[2024-08-19 16:16] VITALS: BP 129/78; PULSE 109
== END 2024-09-18 17:08 | disposition home or self-care (01) ==
LOC: ANHOBOP 15:34
PROVIDERS: PCP Physician Assistant; Visit Provider Student in an Organized Health Care Education/Training Program
DX: O16.3 Unspecified maternal hypertension, third trimester (principal); Z3A.36 36 weeks gestation of pregnancy
CPT/HCPCS: 59025; 76819

== ENCOUNTER 2024-08-21 05:50 | Inpatient (IN) | payer BC, OTHER, SELFPAY ==
[2024-08-21] VITALS (180 sets, daily range): BP systolic 89–145; BP diastolic 43–95; PULSE 56–156; TEMP 36.2–36.8; O2SAT 89–100; BMI 40.5
--- OUTSIDE RECORDS SUMMARY | 2024-08-21 05:55 | XMS_ITS | Encounter Summary ---
Author Organization [facility] Address [address] [place] [address] Phone Care Team Providers Care Company Dancer Name Role Phone Pass, Shanel Desir APRN, GRANITE CHIP TERRAZZO FINISHER Unavailable Karolina Caro PAC Primary Care Pro vider Encounter Details Date Type Department Care Team (Late st Contact Info) Description 06/12/2024 [facility] [address] [place] [address] Katya Hernandez MD [address] [place] [address] Social History Tobacco Use Types [...] Respiratory Rule-Out 07/14/2024 07/14/202407/14/2 025 12:29 PM INTERNET E COMMERCE SPECIALIST COVID - 19 07/14/2024 07/14/2024 07/14/2024 12:2 7 PM INTERNET E COMMERCE SPECIALIST Assessment Noted Time PHQ-9 Depression Total Score: 0 04/20/20 22 8:00 AM INTERNET E COMMERCE SPECIALIST documented as of this encounter Care Teams Company Dancer Relationship Specialty Start Date End Date Karolina Caro, [facility] [address] [place] [address] PCP - General Physician Supervisor Special Education 08/14/23 Shanel Sim APRN, GRANITE CHIP TERRAZZO FINISHER [address] [facility] [address] [place] [address] Certified Nurse Practitioner 12/26/18 documented as of this encounter
--- OUTSIDE RECORDS SUMMARY | 2024-08-21 05:55 | XMS_ITS | Encounter Summary ---
Author Organization [facility] Address [address] [place] [address] Phone Care Team Providers Care Kiln Tender Name Role Phone Karolina Caro PAC Primary Care Pro vider Shanel Sim NUCLEAR EQUIPMENT TEST ENGINEER, COMMERCIAL LOAN MANAGER Unavailable Rica Mercado NUCLEAR EQUIPMENT TEST ENGINEER, COMMERCIAL LOAN MANAGER Primary Care Provid er Ofelia Pantoja NUCLEAR EQUIPMENT TEST ENGINEER, COMMERCIAL LOAN MANAGER Primary Care Provider + Karolina Caro PAC Primary Care Pro vider Reason for Visit * Reason Comments Medication Refill Encounter Details Date Type Department Care Team (Late st Contact Info) Description 01/26/2020 Refill [facility] [address] [place] [phone] Karolina Caro, PAC [address] [place] [address] Medication Refill Social History Tobacco Use Types [...] - 19 04/03/2024 04/03/2024 04/03/2024 9:02 AM ELECTRICAL MACHINIST Respiratory Rule-Out 04/03/2024 04/03/2024 024 9:04 AM ELECTRICAL MACHINIST Respiratory Rule-Out 07/14/2024 07/14/2024 025 12:29 PM ELECTRICAL MACHINIST COVID - 19 07/14/2024 07/14/2024 07/14/2024 12:2 7 PM ELECTRICAL MACHINIST Assessment Noted Time PHQ-9 Depression Total Score: 0 12/27/19 19 1:10 PM CDT documented as of this encounter Care Teams Kiln Tender Relationship Specialty Start Date End Date Karolina Caro, PAC [address] [place] [address] PCP - General Physician Dispensing Audiologist 12/15/16 02/23/21 Rica Mercado APRN, COMMERCIAL LOAN MANAGER #[address] [address] PCP - General Advanced Practice Nurse 02/24/21 Ofelia Pantoja NUCLEAR EQUIPMENT TEST ENGINEER, COMMERCIAL LOAN MANAGER [address] [place] [address] PCP - General Advanced Practice Nurse 07/13/22 Karolina Caro, PAC [address] [place] [address] PCP - General Physician Dispensing Audiologist 08/14/23 Shanel Sim APRN, COMMERCIAL LOAN MANAGER 2 [facility] [address] [place] [address] Certified Nurse Practitioner 12/26/18 documented as of this encounter
--- OUTSIDE RECORDS SUMMARY | 2024-08-21 05:55 | XMS_ITS | Encounter Summary ---
Author Organization [facility] Address [address] [place] [address] Phone Care Team Providers Care Lineman Service Or Work Dispatcher Name Role Phone Pass, Shanel Desir PEDIATRIC NEUROLOGIST, LABOR CREW SUPERVISOR Unavailable [phone] Ofelia Pantoja PEDIATRIC NEUROLOGIST, LABOR CREW SUPERVISOR Primary Care Provider + Karolina Caro [facility] Primary Care Pro vider Reason for Visit * Reason Comments Medication Refill Encounter Details Date Type Department Care Team (Late st Contact Info) Description 05/08/2023 Refill [facility] [address] [place] [address] Ofelia Pantoja, PEDIATRIC NEUROLOGIST, LABOR CREW SUPERVISOR [address] [place] [address] Medication Refill Social History Tobacco Use Types [...] with SSRI for at least 6 months E STRIPPER documented in this encounter Plan of Treatment Not on file documented as of this encounter Visit Diagnoses Diagnosis Depression, unspecified depression type Anxiety Anxiety state, unspecified documented in this encounter Additional Health Concerns Infection Onset Date Last Indicated Resolved Time COVID - 19 04/03/2024 04/03/2024 04/03/2024 9:02 AM FRAME STRIPPER Respiratory Rule-Out 04/03/2024 04/03/2024 024 9:04 AM FRAME STRIPPER Respiratory Rule-Out 07/14/2024 07/14/2024 025 12:29 PM FRAME STRIPPER COVID - 19 07/14/2024 07/14/2024 07/14/2024 12:2 7 PM FRAME STRIPPER Assessment Noted Time PHQ-9 Depression Total Score: 0 04/20/20 22 8:00 AM FRAME STRIPPER documented as of this encounter Care Teams Lineman Service Or Work Dispatcher Relationship Specialty Start Date End Date Ofelia Pantoja, PEDIATRIC NEUROLOGIST, LABOR CREW SUPERVISOR [address] [place] [address] PCP - General Advanced Practice Nurse 07/13/22 Karolina Caro, PAC [address] [place] [address] PCP - General Physician Leveler Helper 08/14/23 Shanel Sim APRN, LABOR CREW SUPERVISOR 2 [facility] [address] [place] [address] Certified Nurse Practitioner 12/26/18 documented as of this encounter
--- OUTSIDE RECORDS SUMMARY | 2024-08-21 05:55 | XMS_ITS | Encounter Summary ---
Author Organization [facility] Address [address] [place] [address] Phone Care Team Providers Care Educational Assistant Name Role Phone Karolina Caro PAC Primary Care Pro vider Shanel Sim TOBACCO PRIMER MACHINE OPERATOR, TUNNELING MACHINE OPERATOR Unavailable [phone] Rica Mercado TOBACCO PRIMER MACHINE OPERATOR, TUNNELING MACHINE OPERATOR Primary Care Provid er Ofelia Pantoja TOBACCO PRIMER MACHINE OPERATOR, TUNNELING MACHINE OPERATOR Primary Care Provider + Karolina Caro PAC Primary Care Pro vider Reason for Visit * Reason Onset Date Comments Medication Refill 07/22/2020 Encounter Details Date Type Department Care Team (Late st Contact Info) Description 07/22/[address] [facility] - Family [facility] [address] [place] [id number] Karolina Caro, PAC [address] [place] [address] Medication Refill Social History Tobacco Use Types [...] 2:56 PM CST Please review and sign. N SACKER * Telephone Encounter - Shaorn Browning - 07/22/2020 2:01 PM CST Received a faxed Rx request from pharmacy. Reordered refill medication(s) requested and pended for nurse and physician/JANN review. Refill encounter routed to nurse [facility] for processing. N SACKER documented in this encounter Plan of Treatment Not on file documented as of this encounter Visit Diagnoses Diagnosis Anxiety Anxiety state, unspecified documented in this encounter Additional Health Concerns Infection Onset Date Last Indicated Resolved Time COVID - 19 04/03/2024 04/03/2024 04/03/2024 9:02 AM GRAIN SACKER Respiratory Rule-Out 04/03/2024 04/03/2024 024 9:04 AM GRAIN SACKER Respiratory Rule-Out 07/14/2024 07/14/2024 025 12:29 PM GRAIN SACKER COVID - 19 07/14/2024 07/14/2024 07/14/2024 12:2 7 PM GRAIN SACKER Assessment Noted Time PHQ-9 Depression Total Score: 0 12/27/19 19 1:10 PM CDT documented as of this encounter Care Teams Educational Assistant Relationship Specialty Start Date End Date Karolina Caro PAC [address] [place] [address] PCP - General Physician Superintendent Maintenance Airports 12/15/16 02/23/21 Rica Mercado APRN, TUNNELING MACHINE OPERATOR #[address] [address] PCP - General Advanced Practice Nurse 02/24/21 Ofelia Pantoja, TOBACCO PRIMER MACHINE OPERATOR, TUNNELING MACHINE OPERATOR [address] [place] [address] PCP - General Advanced Practice Nurse 07/13/22 Karolina Caro, [facility] [address] [place] [address] PCP - General Physician Superintendent Maintenance Airports 08/14/23 Shanel Sim APRN, TUNNELING MACHINE OPERATOR 2 [facility] [address] [place] [address] Certified Nurse Practitioner 12/26/18 documented as of this encounter
--- OUTSIDE RECORDS SUMMARY | 2024-08-21 05:55 | XMS_ITS | Clinical Summary ---
Author Organization [facility] Address [address] [place] [address] Phone Care Team Providers Care Taker Away Name Role Phone Pass, Shanel Desir APRN, BIG DATA LEAD Unavailable [phone] Karolina Caro PAC Primary Care Pro vider [...] Department Care Team Description 07/14/2024 11:45 AM REHABILITATION PHYSICIAN Urgent Care Visit [facility] [place] [facility] [address] [place] [address] Enid Nuñez, WEBBING SEAMER POUND NET, BIG DATA LEAD Acute nasopharyngitis (Primary Dx); Acute cough Discharge Disposition: Discharged to home or Selfcare 07/14/2024 Travel 06/17/2024 Travel 06/12/2024 Transcribe Orders [facility] Laboratory Services [address] [place] [address] Katya Hernandez MD 06/11/2024 Transcribe Orders [facility] Central Scheduling [address] [place] [address] Katya Hernandez MD Encounter for supervision of normal , antepartum, unspecified (Primary Dx) from Last 3 Months Immunizations Immunization Administration [...] Comments Blood Pressure 114/62 07/14/2024 12:10 PM REHABILITATION PHYSICIAN Pulse 85 07/14/2024 12:10 PM REHABILITATION PHYSICIAN Temperature 36.2 C (97.2 F) 07/14/2024 12:10 PM REHABILITATION PHYSICIAN Respiratory Rate 20 07/14/2024 12:10 PM REHABILITATION PHYSICIAN Oxygen Saturation 98% 07/14/2024 12:10 PM REHABILITATION PHYSICIAN Inhaled Oxygen Concentration - - Weight 88.5 [...] Procedure Name Priority Date/Time Associated Diagnosis Comments US - DIRECTOR MACHINE 08/08/2024 12:00 AM CDT POC SARS-COV-2 BY MOLECULAR Routine 07/14/2024 12:27 PM REHABILITATION PHYSICIAN Acute cough POC INFLUENZA A AND B BY MOLECULAR Routine 07/14/2024 12:27 PM REHABILITATION PHYSICIAN Acute cough POC GROUP A STREP BY MOLECULAR Routine 07/14/2024 12:23 PM REHABILITATION PHYSICIAN Acute cough GGTT, FIRST HOUR Routine 06/17/2024 8:50 AM REHABILITATION PHYSICIAN Encounter for supervision of normal , antepartum, unspecified GGTT, FASTING Routine 06/17/2024 8:50 AM REHABILITATION PHYSICIAN Encounter for supervision of normal , antepartum, unspecified GLUCOSE TOLERANCE GESTATIONAL (GGTT), 2 HOUR Routine 06/17/2024 8:50 AM REHABILITATION PHYSICIAN Encounter for supervision of normal , antepartum, unspecified HIV 1 & 2 ANTIBODY & ANTIGEN SCREEN Routine 06/17/2024 8:50 AM REHABILITATION PHYSICIAN Encounter for supervision of normal , antepartum, unspecified RPR SCREEN ONLY Routine 06/17/2024 8:50 AM REHABILITATION PHYSICIAN Encounter for supervision of normal , antepartum, unspecified CBC WITH AUTO DIFFERENTIAL Routine 06/17/2024 8:31 AM REHABILITATION PHYSICIAN Encounter for supervision of normal , antepartum, unspecified COMPLETE BLOOD COUNT (CBC) WITH DIFF Routine 06/17/2024 8:31 AM REHABILITATION PHYSICIAN Encounter for supervision of normal , antepartum, unspecified PATHOLOGY CYTOLOGY KENNEL ASSISTANT Routine 09/21/2017 from Last 3 Months or Most Recently Relevant to Health Maintenance Results * US - DIRECTOR MACHINE (08/08/2024 12:00 AM CDT) 08/08/2024 us Provider Scan IMG US ORDERABLES Final Result SCAN * POC SARS-COV-2 BY MOLECULAR (07/14/2024 12:27 PM REHABILITATION PHYSICIAN) SARSCOV2 Negative Negative, INVALID PROCEDURE CONTROL Valid 07/14/2024 12:2 7 PM REHABILITATION PHYSICIAN Enid Nuñez APRN, JACOB POINT OF CARE TEST ING (MANUAL) Final Result * POC INFLUENZA A AND B BY MOLECULAR (07/14/2024 12:27 PM REHABILITATION PHYSICIAN) INFLUENZA A RNA Negative Negative, Invalid INFLUENZA B RNA Negative Negative, Invalid PROCEDURE CONTROL Valid 07/14/2024 12:2 7 PM REHABILITATION PHYSICIAN Enid Nuñez APRN, BIG DATA LEAD POINT OF CARE TEST ING (MANUAL) Final Result * POC GROUP A STREP BY MOLECULAR (07/14/2024 12:23 PM REHABILITATION PHYSICIAN) [facility] STREP A DNA Negative Negative, Invalid PROCEDURE CONTROL Valid 07/14/2024 12:2 3 PM REHABILITATION PHYSICIAN Enid Nuñez WEBBING SEAMER POUND NET, BIG DATA LEAD POINT OF CARE TEST ING (MANUAL) Final Result * HIV 1 & 2 ANTIBODY & ANTIGEN SCREEN (06/17/2024 8:50 AM REHABILITATION PHYSICIAN) [facility] HIV 1 & 2 ANTIBODY & ANTIGEN SCREEN NON DETECTED NON DETECTED 06/17/2024 3:56 PM REHABILITATION PHYSICIAN [facility] Blood Venipuncture / Unknown 06/17/2024 8:50 AM REHABILITATION PHYSICIAN 06/17/2024 9:30 AM REHABILITATION PHYSICIAN Katya Hernandez MD LAB SEND OUTS Final Result Performing Organization Address City/[facility]/ZIP Co de Phone Number [facility] [address] [place] [address], * GGTT, FASTING (06/17/2024 8:50 AM REHABILITATION PHYSICIAN) [facility] GLUCOSE, FASTING GESTATIONAL 79 50 - 94 mg/dL 06/17/2024 2:43 PM REHABILITATION PHYSICIAN [facility] DOSE <=0 g 06/17/2024 2:43 PM REHABILITATION PHYSICIAN [facility] Blood Venipuncture / Unknown 06/17/2024 8:50 AM REHABILITATION PHYSICIAN 06/17/2024 9:30 AM REHABILITATION PHYSICIAN Katya Hernandez MD CHEMISTRY ORDERABLES Final Resu lt [facility] [address] [place] [address] * GGTT, FIRST HOUR (06/17/2024 8:50 AM REHABILITATION PHYSICIAN) [facility] GLUCOSE, 1 HR GESTATIONAL 109 50 - 179 mg/dL 06/17/2024 10:20 AM REHABILITATION PHYSICIAN [facility] Blood Venipuncture / Unknown 06/17/2024 8:50 AM REHABILITATION PHYSICIAN 06/17/2024 10:02 AM REHABILITATION PHYSICIAN us Katya Hernandez MD CHEMISTRY ORDERABLES Final Resu lt [facility] [address] [place] [address] * RPR SCREEN ONLY (06/17/2024 8:50 AM REHABILITATION PHYSICIAN) RPR NONREACTIVE NONREACTIVE 06/18/2024 7:54 AM REHABILITATION PHYSICIAN [facility] Blood Venipuncture / Unknown 06/17/2024 8:50 AM REHABILITATION PHYSICIAN 06/17/2024 9:30 AM REHABILITATION PHYSICIAN us Katya Hernandez MD IMMUNOLOGY ORDERABLES Final Res ult [facility] [address] [place] [address], [place] * (ABNORMAL) CBC WITH AUTO DIFFERENTIAL (06/17/2024 8:31 AM REHABILITATION PHYSICIAN) WBC 11.04 4.00 - 12.00 10(3)/mcL 06/17/2024 9:33 AM REHABILITATION PHYSICIAN [facility] RBC 3.88 3.80 - 5.30 10(6)/[facility] 06/17/2024 9:33 AM REHABILITATION PHYSICIAN [facility] HEMOGLOBIN (HGB) 12.1 12.0 - 15.8 g/dL 06/17/2024 9:33 AM REHABILITATION PHYSICIAN [facility] HEMATOCRIT (HCT) 34.6(L) 36.0 - 47.0 % 06/17/2024 9:33 AM REHABILITATION PHYSICIAN [facility] MCV 89.2 82.0 - 96.0 fL 06/17/2024 9:33 AM REHABILITATION PHYSICIAN [facility] MCH 31.2 26.0 - 34.0 pg 06/17/2024 9:33 AM REHABILITATION PHYSICIAN [facility] MCHC 35.0 31.0 - 36.0 g/dL 06/17/2024 9:33 AM [facility] PLATELET COUNT 240 140 - 440 10(3)/[facility] 06/17/2024 9:33 AM [facility] RDW 11.9 11.8 - 15.5 % 06/17/2024 9:33 AM [facility] MPV 10.5 9.7 - 12.4 fL 06/17/2024 9:33 AM [facility] NEUTROPHILS 82.0(H) 47.0 - 73.0 % 06/17/2024 9:33 AM [facility] LYMPHOCYTES 11.8(L) 18.0 - 42.0 % 06/17/2024 9:33 AM [facility] MONOCYTES 4.8 4.0 - 12.0 % 06/17/2024 9:33 AM [facility] EOSINOPHILS 1.0 0.0 - 5.0 % 06/17/2024 9:33 AM [facility] BASOPHILS 0.4 0.0 - 1.0 % 06/17/2024 9:33 AM [facility] ABSOLUTE NEUTROPHILS 9.06(H) 1.60 - 7.70 10(3)/[facility] 06/17/2024 9:33 AM [facility] ABSOLUTE LYMPHOCYTES 1.30 1.30 - 3.20 10(3)/[facility] 06/17/2024 9:33 AM [facility] ABSOLUTE MONOCYTES 0.53 0.20 - 1.00 10(3)/[facility] 06/17/2024 9:33 AM [facility] ABSOLUTE EOSINOPHIL 0.11 0.00 - 0.40 10(3)/[facility] 06/17/2024 9:33 AM [facility] ABSOLUTE BASOPHILS 0.04 0.00 - 0.10 10(3)/[facility] 06/17/2024 9:33 AM [facility] NRBC PER 100 WBC 0 06/17/19 9:33 AM [facility] Blood Venipuncture / Unknown 06/17/2024 8:31 AM REHABILITATION PHYSICIAN 06/17/2024 9:30 AM REHABILITATION PHYSICIAN us Katya Hernandez MD HEMATOLOGY ORDERABLES Final Res ult [facility] [address] [place] [address] * PATHOLOGY CYTOLOGY KENNEL ASSISTANT (09/21/2017) Specimen of unknown material (specimen) us Anny Gerber APRN, JACOB PATHOLOGY/CYTOLOGY OR DERABLES Final Result from Last 3 Months or Most Recently Relevant to Health Maintenance Insurance [facility] Care Teams Taker Away Relationship Specialty Start Date End Date GordoBrandieKarolinaksenia Duong, [facility] [address] [place] [address] PCP - General Physician Body Bumper 08/14/23 Shanel Sim APRN, BIG DATA LEAD 2 [facility] [address] [place] [address] Certified Nurse Practitioner 12/26/18
--- NOTE | 2024-08-21 06:29 | LDADM ---
This patient, Elizabeth Springer, was admitted to Labor/Delivery/Recovery 106 on 08/21/24 at 05:50. Plans for labor, pain management and were discussed with patient. Patient/family oriented to hospital policies and general routines including ID bracelet, bed and alarms, visiting hours, pain management, procedures, bathroom and other care routines, personal items, smoking policy, room service/diet and guest tray routines, infant security routines, and visiting hours. Patient/Family are encouraged to report perceived risks to care and to ask questions if they do not understand what they are told or what they should do. See OBIX for further documentation.
[2024-08-21 06:50] LABS: Basophils Percent Auto 0.3 % (0.2-1.2); Eosinophils Absolute Auto 0.1 K/mm3 (0-0.3); Hemoglobin 9.5 g/dL (12.0-15.0); Immature Granulocyte Absolute 0.07 K/mm3 (0.00-0.031); Immature Granulocyte Percent A 0.6 % (0-0.5); Lymphocytes Absolute Auto 1.61 K/mm3 (0.9-3.2); Lymphocytes Percent Auto 14.7 % (18.3-44.2); Mean Corpuscular HGB Conc 32.8 g/dl (32-36); Mean Corpuscular Hemoglobin 28.2 pg (26-34); Mean Corpuscular Volume 86.1 fl (80-100); Mean Platelet Volume 11.3 fl (7.4-10.4); Monocytes Absolute Auto 0.7 K/mm3 (0.1-0.6); Neutrophils Absolute Auto 8.5 K/mm3 (1.3-6.7); Neutrophils Percent Auto 77.4 % (45.5-73.1); Platelet Count Result 202 k/mm3 (150-375); Red Blood Count 3.37 M/mm3 (4.2-5.4); Red Cell Distribution Width 12.1 % (11.5-14.5); White Blood Count 10.9 K/mm3 (4.5-10.0)
--- NOTE | 2024-08-21 06:55 | WPDANESEPP ---
Anes - Eval Pre Procedure Procedure: labor epidural Date/Time: 08/21/24 06:55 Surgeon: al Preop Diagnosis: pain during labor Pre Op Diagnosis: IOL Patient Data Age: 28 Gender: F Height: Weight: Last Vital Signs Pulse 85 08/21/24 06:46 BP 104/69 08/21/24 06:46 Pulse Ox 99 08/21/24 06:50 O2 Del Method Room Air 08/21/24 06:28 Allergies Allergy/AdvReac Type Severity Reaction Status Date / Time cinnamon Allergy Swelling Verified 08/19/24 14:58 of Lip/Tongue/Throat Home Medications ?Medication ?Instructions ?Recorded ?Confirmed ?Type prenat.vits,hammad,ani-bccv-qalyp 1 tablet PO DAILY 10/19/21 07/29/24 History aspirin 81 mg tablet,delayed 162 mg PO DAILY 03/26/24 07/29/24 History release (Adult Aspirin Regimen) calcium carbonate (Tums) 200 mg PO BID PRN heartburn 05/08/24 07/29/24 History acetaminophen 500 mg tablet 1,000 mg PO Q6H PRN headache 05/31/24 07/29/24 History (Tylenol Extra Strength) doxylamine succinate 25 mg tablet 25 mg PO QHS PRN 06/11/24 07/29/24 History (Unisom (doxylamine)) Laboratory Tests 08/21/24 06:08 WBC 10.9 H K/mm3 (4.5-10.0) RBC 3.37 L M/mm3 (4.2-5.4) Hgb 9.5 L g/dL (12.0-15.0) Hct 29.0 L % (37.0-47.0) MCV 86.1 fl (80-100) MCH 28.2 pg (26-34) MCHC 32.8 g/dl (32-36) RDW 12.1 % (11.5-14.5) Plt Count 202 k/mm3 (150-375) MPV 11.3 H fl (7.4-10.4) Immature Gran % (Auto) 0.6 H % (0-0.5) Neut % (Auto) 77.4 H % (45.5-73.1) Lymph % (Auto) 14.7 L % (18.3-44.2) [place] % (Auto) 6.0 % (2.6-8.5) Eos % (Auto) 1.0 % (0-4.4) Baso % (Auto) 0.3 % (0.2-1.2) Lymph # (Auto) 1.61 K/mm3 (0.9-3.2) [place] # (Auto) 0.7 H K/mm3 (0.1-0.6) Eos # (Auto) 0.1 K/mm3 (0-0.3) Baso # (Auto) 0.0 K/mm3 (0.0-0.1) Abs Immat Gran (auto) 0.07 H K/mm3 (0.00-0.031) Absolute Neuts (auto) 8.5 H K/mm3 (1.3-6.7) Absolute Nucleated RBC 0.000 K/mm3 (0.0-0.012) Nucleated RBC % 0.0 % (0.0-0.2) HIV 1&2 Ab/P24 Ag 4thGn Pending Patient hx anesthesia problems: none Family hx anesthesia problems: none Results Review: All pre-operative results and documents have been reviewed as part of the pre-operative evaluation. [facility] Past Medical History Medical History Strep throat Suppression of menses Obesity Anxiety Tachycardia Gestational hypertension Surgical History Surgical History S/P tonsillectomy H/O wisdom tooth extraction Hx of appendectomy Family History Family History Grandparent Cerebrovascular accident Grandparent Alzheimer disease Other No pertinent family history in first degree relatives Social History Social History Smoking status: Never smoker Alcohol intake: current Alcohol use details: socially Substance use: never Do You Feel Safe in your Home?: Yes Lack of Transportation: No Lack of Food: Never True Current Housing: I Have Housing Concerned About Future Housing: No Difficulty Paying Gas/Electric Bills: No Difficulty Paying for Meds: No Currently Unemployed: No Education: Master's Degree or Higher Difficulty w/ Childcare or Family Care: No Living arrangements: with family Occupation/Education: occupation Gender identity (if verbalized by the patient): Female Spiritual care concerns: No Exam Day of Procedure 08/21/24 06:55
[2024-08-21] MEDS: OXYTOCIN 30 UNITS/NS 500 ML 30 UNITS/500 ML BAG IV CONT (07:08)
[2024-08-21] MEDS: AMPICILLIN 2 GM/NS 100 ML 2 GM/100 ML BAG IVPB (07:08)
[2024-08-21] MEDS: LACTATED RINGERS 1,000 ML 125 ML IV CONT ×3 (07:08→20:28)
[2024-08-21 07:45] LABS: HIV 1/2 Ab P24 Ag Result Negative (Negative)
--- NOTE | 2024-08-21 07:45 | WPDHPUPDATE1 ---
History and Physical Update Update Date/Time: 08/21/24 07:45 28 yo @ 37w2d who presents for IOL for preeclampsia w/o severe features. History and Physical has been reviewed, including an updated exam of the patient. There are NO changes in the patient's condition. Risks, benefits, and alternatives have been discussed and questions answered. Patient agrees to proceed with procedure. -PreE w/o severe features - h/o GHTN- low dose ASA-no antihypertensives. - h/o 9lb 14oz -admit to L&D -routine admisssion orders -Rh+ -GBS positive, abx while in labor -contiuous EFM -plan for cytotec IOL
[2024-08-21] MEDS: CALCIUM CARBONATE (TUMS) 500 MG (200 MG ELEMENTAL) PO (07:53)
[2024-08-21] MEDS: FAMOTIDINE 20 MG/2 ML VIAL IV PUSH (07:55)
[2024-08-21] MEDS: miSOPROStol 25 MCG TABLET 50 MCG BUCCAL (08:14)
[2024-08-21 08:46] LABS: Syphilis IgG/IgM Antibody Negative (Negative)
[2024-08-21] MEDS: AMPICILLIN 1 GM/NS 50 ML 1 GM/50 ML BAG IVPB ×4 (11:02→22:42)
--- NOTE | 2024-08-21 11:45 | PM.OBPNLAB ---
Pain Control Date/time seen: 08/21/24 11:45 Pain control: tolerating well Pelvic Exam Dilation (cm): 2 Effacement (%): 50 station: -3 Amniotic membrane status: Intact Contractions Monitor mode: External Contraction pattern: Regular Contraction intensity: Moderate Status status: Category l Assessment and Plan Assessment: induction ongoing Comments: Cooks cervical balloon placed with 40 mL saline in each balloon. Will augment with pitocin as needed.
[2024-08-21] MEDS: PHENYLEPHRINE 1,000 MCG/10 ML SYRINGE 100 MCG IV PUSH ×3 (16:18→16:44)
[2024-08-21] MEDS: ePHEDrine sulfate INJ 50 MG/ML AMPUL 25 MG IM (17:00)
[2024-08-21] MEDS: ONDANSETRON INJ 4 MG/2 ML VIAL IV PUSH (22:38)
[2024-08-21] MEDS: miSOPROStol 200 MCG TABLET 1000 MCG RECTAL (23:48)
--- NOTE | 2024-08-21 23:52 | PM.OBPRVD ---
OB - Vaginal Delivery Note Procedure Delivery date: 08/21/24 Events: Preeclampsia w/o severe features Induction method: Per Misoprostol Protocol Delivery augmentation: Rupture of Membranes and Pitocin Delivery monitor: External FHT and Internal Uterine Route of delivery: Episiotomy description: None Laceration Description: None Specimen: Yes (placenta) Quantitative Blood Loss (ml): 150 Anesthesia type: Epidural Disposition: Floor Complications: No immediate complications Narrative: Patient pushed for a spontaneous vaginal delivery. A nuchal cord and body cord were noted on delivery. Both were reduced. The fetus was delivered atraumatically and placed on the maternal abdomen. The cord was clamped and cut after 1 minute of life. The cord was double clamped and cut and a segment of cord was collected for cord gases. Cord blood was collected for blood type and Coomb's testing. The placenta delivered spontaneously and was noted to be intact. The perineum was inspected and noted to be intact. Brisk bleeding was noted during bimanual massage of the uterine fundus. 1000 mcg of cytotec was placed per rectum to prevent hemorrhage. Baby Date of : 08/21/24 Time of : 23:42 Gestational Age by Date: 37 Infant gender: Female presentation: vertex position: Right Occiput Anterior Placenta delivery description: Spontaneous Cord Vessel Description: 3 Vessels, Nuchal Cord and Around Body score one minute: 8 score five minutes: 9
[2024-08-22] VITALS (28 sets, daily range): BP systolic 102–127; BP diastolic 54–81; PULSE 65–106; RESP 16–18; TEMP 36.2–36.9; O2SAT 95–100
[2024-08-22] MEDS: OXYTOCIN 30 UNITS/NS 500 ML 30 UNITS/500 ML BAG 125 UNITS IV CONT (00:19)
[2024-08-22] MEDS: ACETAMINOPHEN 325 MG TABLET 650 MG PO ×3 (01:05→21:30)
[2024-08-22] MEDS: IBUPROFEN 600 MG TABLET PO ×3 (01:25→16:45)
[2024-08-22] MEDS: WITCH HAZEL 40 PADS 1 PAD TOPICAL (01:38)
[2024-08-22] MEDS: BENZOCAINE 20% AER SPR (*SP) 56 GM CAN 1 SPRAY TOPICAL (01:38)
--- NOTE | 2024-08-22 02:02 | OBPPTRN ---
Patient transferred to post room #282 via wheelchair. Support person present. Oriented to unit, room, information board, rooming in, admission packet and security measures. Patient verbalizes understanding.
[2024-08-22] MEDS: HYDROcodone/acetaminophen (*CRX) 5-325 MG TABLET 1 TAB PO (04:35)
[2024-08-22 07:16] LABS: Hematocrit 26.3 % (37.0-47.0); Hemoglobin 8.8 g/dL (12.0-15.0)
[2024-08-22] MEDS: DOCUSATE SODIUM 100 MG CAPSULE PO (08:39)
[2024-08-22] MEDS: POLYSACCHARIDE IRON COMPLEX 150 MG CAPSULE PO ×2 (08:39→16:45)
[2024-08-22] MEDS: MULTIVIT/MIN/PREN/FOL AC/IRON TABLET 1 TAB PO (08:39)
--- NOTE | 2024-08-22 12:01 | PC.NURSE ---
0930 Introductions were made, then consulted with patient to assess needs related to . Discussed with mother her?plans to feed?her infant and the?experience so far. Per mom she had been attempting to latch baby for the last 20 minutes and was unsuccessful. Advised mother to put baby skin to skin, watch for feeding cues, mom will call if she needs breast milk warmed up that she pumped earlier this morning. Resources provided for inpatient services with the feeding sheet, mom/baby guide and name written on the communication board. Mother voiced understanding of information and will call if there is a request for assistance. Reported to the Primary RN. 1000 Mother called and infant is not interested in right now, offered to warm up pumped breast milk in refrigerator but mother wants to just use her breast pump now and give fresh breast milk. Mother to call if she needs additional milk from the refrigerator. 1045 Mother called out for additional breast milk from refrigerator to be warmed and brought in, baby will end up taking 15mls total via bottle.
--- NOTE | 2024-08-22 12:17 | P.PNOB_ITS ---
OB - PN: Subj Subjective Date/time seen: 08/22/24 12:17 Patient comments: no complaints, pain well controlled and tolerating diet [place] feeding status: exclusively breast feeding Narrative: patient doing well this AM. No complaints. Pain is well controlled. She reports minimal bleeding. She is ambulating and voiding without difficulty. She is tolerating PO. She denies N/V, fever, chills. OB - PN: Obj Data Labs 08/22/24 07:11 Labs: Laboratory Results - last 24 hr 08/22/24 07:11 Hgb 8.8 L Hct 26.3 L OB - PN A/P Plan day: 1 Plan: routine care Comments: patient do/ng well H/H stable, continue iron supplementation continue routine care anticipate d/c home in the AM Time Spent With Patient Time: Total time spent is greater than 50% in coordination of care (as documented) at patient's floor/unit and/or counseling patient: Time with patient: less than 15 minutes Review of Systems 2 Review of Systems: All systems reviewed & are unremarkable except as noted in HPI and below Exam 2 Const: General: comfortable and no acute distress Resp: Effort & Inspection: normal respiratory effort Cardio: Rate: regular rate GI: GI Palp: Yes Soft to palpation and No Tenderness to palpation present (GI) Auscultation: normal bowel sounds Other: fundus firm and below umbilicus. Psych: Affect: normal affect
--- NOTE | 2024-08-22 15:54 | PM.OBDSVD ---
DS: Admitting Diagnosis Discharge Date 08/23/24 Admitting Diagnosis intrauterine at term preeclampsia w/o severe features DS: Discharge Diagnosis Discharge Diagnosis (1) Normal vaginal delivery: Code(s): O80 - Encounter for full-term uncomplicated delivery Status: Acute OB - DS: Summary OB Procedures : None OB Procedures Intrapartum: Spontaneous Vag Delivery OB Procedures: : None Peripartum Data Laceration Description: None Episiotomy description: None Status at Discharge Functional status at discharge: independent ambulation Overall status at discharge: patient is back to baseline Time Spent with Patient Time attestation: Total time spent providing and/or coordinating discharge services: Time spent: Less than 30 minutes Exam Const: General: comfortable and no acute distress Resp: Effort & Inspection: normal respiratory effort Auscultation: clear to auscultation bilaterally Cardio: Rate: regular rate GI: GI Palp: Yes Soft to palpation Auscultation: normal bowel sounds Other: Fundus firm below umbilicus Psych: Appearance: grossly normal Mental Status: mental status grossly normal Affect: normal affect DS: Data Data Completed and Pending Pending studies at discharge: Pending at discharge 08/22/24 11:41 Surgical [PTH] Routine Labs on day of discharge: Labs from last 24 hours 08/22/24 07:11 Hgb 8.8 L Hct 26.3 L Discharge Plan Discharge Discharging Clinician: Renny Garcia Activity: as tolerated and pelvic rest Diet: regular Patient Instructions: Vaginal Delivery (DC) Patient Language: Russian Follow-up/Referrals: Renny Garcia MD [Physician] - 1 Week (BP check) Discharge Medications: New acetaminophen 500 mg tablet 500 mg PO Q6H PRN (Reason: pain) Qty: 30 0RF ibuprofen 600 mg tablet 600 mg PO Q6H PRN (Reason: pain) Qty: 30 0RF Continued Unisom (doxylamine) 25 mg tablet 25 mg PO QHS PRN calcium carbonate [Tums] 200 mg calcium (500 mg) tablet,chewable 200 mg PO BID PRN (Reason: heartburn) acetaminophen [Tylenol Extra Strength] 500 mg tablet 1,000 mg PO Q6H PRN (Reason: headache) prenat.vits,hammad,ucn-[id number] Tablet 1 tablet PO DAILY Discontinued aspirin [Adult Aspirin Regimen] 81 mg tablet,delayed release (DR/EC) 162 mg PO DAILY Date of admission: 08/21/24 05:50 Primary Care Provider: Gordo,Karolina Admitting Provider: Renny Garcia Attending physician on admission: Renny Garcia Condition: Stable
[2024-08-23 00:10] VITALS: BP 112/84; PULSE 76; RESP 18; O2SAT 100
[2024-08-23 03:20] VITALS: BP 120/69; PULSE 83; RESP 18; O2SAT 100
[2024-08-23] MEDS: IBUPROFEN 600 MG TABLET PO ×3 (03:20→16:53)
[2024-08-23] MEDS: ACETAMINOPHEN 325 MG TABLET 650 MG PO ×2 (05:47→12:23)
[2024-08-23] MEDS: DOCUSATE SODIUM 100 MG CAPSULE PO ×2 (07:33→16:52)
[2024-08-23] MEDS: POLYSACCHARIDE IRON COMPLEX 150 MG CAPSULE PO ×2 (07:33→16:52)
[2024-08-23] MEDS: MEASLES,MUMPS,RUBELLA VACCINE 0.5 ML VIAL SUB-Q (07:35)
[2024-08-23 07:48] VITALS: BP 129/70; PULSE 69; RESP 14; TEMP 36.2; O2SAT 99
--- NOTE | 2024-08-23 08:00 | PC.NURSE ---
Infant is [greater than 24 hours old & high risk for ineffective ] and has not fed [effectively at breast]. We attempted to latch baby to the right breast in cross cradle hold. She doesn't open with a wide gape but we did get a few shallow latches without any suckling attempt from baby. Initiated a feeding plan for infant with a provider order for formula supplementation. Mother is instructed to pump (with her pump from home) after every or attempt. Mother should only attempt for 10-15 minutes at breast before moving on to supplementation. Support person can feed baby 15ml of pumped milk or formula while mother is pumping. Instructed parents on keeping breastmilk at the bedside until the next feeding or for up to 4 hours. Patient is using her own breast pump and is familiar with use, cleaning, and schedule. Reported to Primary RN.?
[2024-08-23] MEDS: MULTIVIT/MIN/PREN/FOL AC/IRON TABLET 1 TAB PO (09:45)
[2024-08-23 12:10] VITALS: BP 114/75; PULSE 71; RESP 71; TEMP 36.6; O2SAT 99
--- NOTE | 2024-08-23 12:44 | PC.NURSE ---
Patient viewed the discharge video Mother & Baby Care, The First Two Weeks . Patient was given the opportunity and encouraged to ask questions. Patient verbalized understanding of information shared and has been given the mother/baby guide for home reference.
--- NOTE | 2024-08-23 15:55 | PC.NURSE ---
Attempted to meet with patient regarding today. She was crying and said she was feeling disappointed that she didn't get to be discharged home today. She was pumping currently and she is encouraged to call out if there is anything we can do for her. Significant other at bedside. RN notified.
[2024-08-23 16:15] VITALS: BP 129/83; PULSE 83; RESP 16; O2SAT 97
--- NOTE | 2024-08-23 16:30 | PC.NURSE ---
Patient called out regarding pumping volumes and formula supplementation. She was feeling better since her tearful episode and wanted to see if there was anything she could do to increase her milk supply. We reviewed the routine pumping schedule and she is counseled to have patience with the milk production process. She is going to decrease the formula baby is getting from 40ml to a smaller volume in hopes that this will help baby be more awake at feeding/pumping times. She may still try putting baby to breast once her milk is in, but she is comfortable with pumping and bottle feeding if that works out better for them. Encouraged mom to trust her body to make milk. She breastfed her first baby for 7 months and we discussed that there is no reason to think she won't have adequate milk production with this baby. Mom seems more relaxed and positive after our talk. Updated RN.
[2024-08-26 11:29] VITALS: BP 131/80; PULSE 88; RESP 14; TEMP 36.8; O2SAT 100
== END 2024-08-23 19:25 | disposition home or self-care (01) | DRG 807 ==
LOC: ANHLDR 05:52 → ANHOB2 08-22 02:05
PROVIDERS: Admitting Provider Student in an Organized Health Care Education/Training Program; PCP Physician Assistant; Visit Provider Student in an Organized Health Care Education/Training Program
DX: O14.04 Mild to moderate pre-eclampsia, complicating childbirth (principal); Z37.0 Single live birth; O99.824 Streptococcus B carrier state complicating childbirth; O69.2XX0 Labor and delivery complicated by other cord entanglement, with compression, not applicable or unspecified; Z3A.37 37 weeks gestation of pregnancy
CPT/HCPCS: 36415; 85014; 85018; 85025; 86593; 86703; 86850; 86900; 86901; 88307; 90710; A9270; G0432; J0290; J2371; J2405; J2590; J2795; J7120